=== PATIENT | male | born 1985 | race Caucasian/White ===

== ENCOUNTER → 2019-08-06 | Outpatient (CLI) | payer MEDICARE ==
[~2019-08-06] MED LIST: ALBUTEROL SULF 0.083% NEB SOLN 3 ML NEB ONE
== END ==
LOC: RESP 11:57
PROVIDERS: ATTEND Internal Medicine Critical Care Medicine
DX: R06.00 Dyspnea, unspecified (principal); J30.9 Allergic rhinitis, unspecified; G47.33 Obstructive sleep apnea (adult) (pediatric); H69.90 Unspecified Eustachian tube disorder, unspecified ear; Z68.41 Body mass index [BMI] 40.0-44.9, adult
CPT/HCPCS: 94060; 94640; 94727; 94729

== ENCOUNTER 2019-08-25 07:27 | Inpatient (IN) | payer MEDICARE, OTHER ==
[~2019-08-25] VITALS: Ht 180.3 cm; Wt 127.0 kg
[2019-08-25] MEDS ORDERED: SODIUM CHLORIDE 0.9% 1000ML 1,000 ML IV STA (07:28)
[2019-08-25] MEDS ORDERED: PIPER-TAZ 3.375 GM 50 ML IV ONE (07:30)
[2019-08-25] MEDS ORDERED: DIATRIZOATE MEGL/DIATRIZOA SOD 30 ML BTL PO ONE (07:41)
[2019-08-25 08:01] LABS: BASOPHILS % 0.3 % (0.0-1.0); EOSINOPHILS # (AUTO) 0.2 (0.0-0.4); EOSINOPHILS % 1.7 % (0.0-6.0); HEMATOCRIT 38.9 % (38.2-49.6); HEMOGLOBIN 12.8 g/dL (14.0-18.0); LYMPHOCYTES # (AUTO) 1.5 (1.0-3.2); LYMPHOCYTES % 16.7 % (18.0-39.1); MEAN CORPUSCULAR HEMOGLOBIN 29.2 pg (28-32); MEAN CORPUSCULAR HGB CONC 32.9 g/dL (31-35); MEAN CORPUSCULAR VOLUME 88.6 fL (81-99); MONOCYTES # (AUTO) 0.5 (0.2-0.8); MONOCYTES % 5.6 % (4.4-11.3); NEUTROPHILS # (AUTO) 6.6 (2.1-6.9); NEUTROPHILS % 75.4 % (38.7-80.0); PLATELET COUNT 358 x10e3/uL (140-360); RED BLOOD COUNT 4.39 x10e6/uL (4.3-5.7); RED CELL DISTRIBUTION WIDTH 12.7 % (11.7-14.4)
[2019-08-25 08:03] LABS: BILIRUBIN,URINE NEGATIVE (NEGATIVE); CLARITY,URINE CLEAR (CLEAR); COLOR,URINE YELLOW (YELLOW); KETONES,URINE NEGATIVE (NEGATIVE); LEUKOCYTE ESTERASE ,URINE NEGATIVE (NEGATIVE); NITRITE,URINE NEGATIVE (NEGATIVE); PROTEIN,URINE DIPSTICK NEGATIVE (NEGATIVE); URINE UROBILINOGEN 0.2 mg/dL (0.2 - 1)
[2019-08-25 08:25] LABS: ALANINE AMINOTRANSFERASE 15 IU/L (0-55); ALBUMIN 3.8 g/dL (3.5-5.0); ALBUMIN/GLOBULIN RATIO 1.1 (0.8-2.0); ALKALINE PHOSPHATASE 55 IU/L (40-150); ANION GAP 14.7 mmol/L (8-16); BACTERIA,URINE FEW /HPF; BLOOD UREA NITROGEN 5 mg/dL (7-26); BUN/CREATININE RATIO 7 (6-25); CALCIUM 9.4 mg/dL (8.4-10.2); CARBON DIOXIDE 23 mmol/L (22-29); CHLORIDE 103 mmol/L (98-107); CREATININE, SERUM 0.76 mg/dL (0.72-1.25); EPITHELIAL CELLS,URINE FEW /LPF; EST GLOMERULAR FILTRATION RATE > 60 ML/MIN (60-); GLUCOSE 103 mg/dL (74-118); POTASSIUM 3.7 mmol/L (3.5-5.1); RBC,URINE 0-5 /HPF (0-5); SODIUM 137 mmol/L (136-145)
--- NOTE | 2019-08-25 10:22 | Diagnostic Imaging Report ---
CT Abdomen And Pelvis with Intravenous Contrast INDICATION: ^look for appy, diverticulitis, pancreatitis, hernia, rup ^[id number] ^[id number] ^Y TECHNIQUE: Thin collimation axial images obtained from the diaphragm to the level of the pubic symphysis following the uneventful administration of 100 cc of low osmolar, nonionic intravenous contrast. Oral contrast was administered. Dose reduction techniques used: Automated exposure control, adjustment of the mAs and/or kVp according to patient size, standardized low-dose protocol, and/or iterative reconstruction technique. RADIATION DOSE: Total DLP: 826.8 mGy*cm Estimated effective dose: (DLP x 0.015 x size factor) mSv CTDIvol has been reviewed. It is below the limits set by the Radiation Protocol Committee (RPC). COMPARISON: None. ABDOMEN FINDINGS: Lung Bases: Clear. The visualized portions of the mediastinum are normal.. Liver: Normal attenuation. No evidence for mass. Gallbladder: Present and appears normal. No biliary ductal dilatation. Pancreas: Normal attenuation without mass or ductal dilatation. Spleen: Normal in size. No evidence of mass.. Adrenal Glands: No evidence for mass. Kidneys: Right: Normal enhancement. No soft tissue mass. No hydronephrosis. Left: Normal enhancement. No soft tissue mass. No hydronephrosis. Lymph Nodes: No lymphadenopathy. Aorta: Normal in diameter PELVIS FINDINGS: Bowel: Stomach: Normal. Small Bowel: Normal in caliber with normal wall thickness. Enteric contrast present throughout Large Bowel: Contains enteric contrast. Diffuse diverticulosis particularly in the descending colon and sigmoid colon there is mural thickening and diverticular inflammation of the distal sigmoid colon. There are multiple droplets of air in the adjacent peritoneum. No loculated fluid collection. Appendix: Contains enteric contrast and is normal. Bladder: Normal. Peritoneum/retroperitoneum: Small fluid collection in the cul-de-sac. No peripheral enhancement. Bones: No focal osseous lesions. Soft tissues: Fat-containing inguinal hernias, left larger than right. IMPRESSION: 1. Acute diverticulitis of the distal sigmoid colon surrounded by multiple droplets of free air consistent with microperforation. No loculated fluid collection to suggest abscess. 2. Small amount of pelvic ascites. 3. Normal appendix. No evidence of bowel obstruction. Signed by: Dr. Dina Head MD on 08/25/2019 10:18 AM
[2019-08-25] MEDS ORDERED: LEVOFLOXACIN 500MG/D5W 100ML IV SCH (10:45)
[2019-08-25] MEDS ORDERED: DIPHENHYDRAMINE HCL INJ 50 MG/ML VIAL IV PRN (10:45)
[2019-08-25] MEDS ORDERED: MORPHINE SULFATE 2 MG/ML SYR 1ML IV PRN (10:45)
[2019-08-25] MEDS: LACTATED RINGER'S 1,000 ML IV SCH (11:06)
--- OUTSIDE RECORDS SUMMARY | 2019-08-25 11:09 | XMS REPORT ---
Author Author [facility] Address Unknown Phone Unavailable Care Team Providers Care Securities Counselor Name Role Phone Abdiaziz DO Unavailable Unavailable Problems This patient has no known problems. Allergies, Adverse Reactions, Alerts This patient has no known allergies or adverse reactions. Medications This patient has no known medications. Results Test Description Test Time Test Comments Text Results Atomic Results Result Comments CT ABDOMEN/PELVIS W 2019-08-25 10:14:00 [place] [id number] [place] [id number] Patient Name: ASYA CAMACHO MR #: [id number] : 1985 Age/Sex: 34/M Req #: [id number] Adm Physician: Ordered by: LUBNA DO MD Report #: [id number] Location: ER Room/Bed: Procedure: [id number] CT/CT ABDOMEN/PELVIS W Exam Date: 08/25/19 Exam Time: 905 REPORT STATUS: Signed CT Abdomen And Pelvis with Intravenous Contrast INDICATION: look for appy, diverticulitis, pancreatitis, hernia, rup [id number] Y TECHNIQUE: Thin collimation axial images obtained from the diaphragm to the level of the pubic symphysis following the uneventful administration of 100 cc of low osmolar, nonionic intravenous contrast. Oral contrast was administered. Dose reduction techniques used: Automated exposure control, adjustment of the mAs and/or kVp according to patient size, standardized low-dose protocol, and/or iterative reconstruction technique. RADIATION DOSE: Total DLP: 826.8 mGy*cm Estimated effective dose: (DLP x 0.015 x size factor) mSv CTDIvol has been reviewed. It is below the limits set by the Radiation Protocol Committee (RPC). COMPARISON: None. ABDOMEN FINDINGS: Lung Bases: Clear. The visualized portions of the mediastinum are normal.. Liver: Normal attenuation. No evidence for mass. Gallbladder: Present and appears jessica l. No biliary ductal dilatation. Pancreas: Normal attenuation without mass or ductal dilatation. Spleen: Normal in size. No evidence of mass.. Adrenal Glands: No evidence for mass. Kidneys: Right: Normal enhancement. No soft tissue mass. No hydronephrosis. Left: Normal enhancement. No soft tissue mass. No hydronephrosis. Lymph Nodes: No lymphadenopathy. Aorta: Normal in diameter PELVIS FINDINGS: Bowel: Stomach: Normal. Small Bowel: Normal in caliber with normal wall thickness. Enteric contrast present throughout Large Bowel: Contains enteric contrast. Diffuse diverticulosis particularly in the descending colon and sigmoid colon there is mural thickening and diverticular inflammation of the distal sigmoid colon. There are multiple droplets of air in the adjacent peritoneum. No loculated fluid collection. Appendix: Contains enteric contrast and is normal. Bladder: Normal. Peritoneum/retroperitoneum: Small fluid collection in the cul-de-sac. No peripheral enhancement. Bones: No focal osseous lesions. Soft tissues: Fat-containing inguinal hernias, left larger than right. IMPRESSION: 1. Acute diverticulitis of the distal sigmoid colon surrounded by multiple droplets of free air consistent with microperforation. No loculated fluid collection to suggest abscess. 2. Small amount of pelvic ascites. 3. Normal appendix. No evidence of bowel obstruction. Signed by: Dr. Delmis Head MD on 08/25/2019 10:18 AM Dictated By: DELMIS HEAD MD [id number] Transcribed By: PITER on 08/25/19 1018 COPY TO: LUBNA DO MD
[2019-08-25 11:30] VITALS: BP 122/65
[2019-08-25] MEDS ORDERED: IOPAMIDOL 370 MG/ML 200 ML INFUS..BTL INJ ONE (11:38)
[2019-08-25] MEDS ORDERED: SODIUM CHLORIDE 0.9% 50ML 50 ML ONE (11:38)
--- NOTE | 2019-08-25 11:41 | NUR ---
Received patient from ER, a/ox3, c/o LLQ pain 05/04, being medicated at this time, admitted for diverticulitis, Levaquin running, IV fluids, call light within reach, c/o nausea, medicated with Zofran, will monitor.
[2019-08-25] MEDS: MORPHINE SULFATE INJ 4 MG/ML INJ 1ML IV PRN ×3 (11:42→20:53)
[2019-08-25] MEDS: ONDANSETRON HCL INJ 2MG/ML 2ML 2 MG/ML VIAL IV PRN (11:42)
[2019-08-25 11:55] VITALS: BP 122/65
[2019-08-25] MEDS: METRONIDAZOLE 500MG/NS 100ML IV SCH ×2 (12:00→17:39)
[2019-08-25] MEDS ORDERED: PRILOSEC10 M1 PO (12:09)
[2019-08-25] MEDS ORDERED: ESTRADIOL1 G2 IM (12:09)
--- NOTE | 2019-08-25 12:20 | NUR ---
Dr. Adamson notified of consult and he called back at this time
[2019-08-25] MEDS ORDERED: MORPHINE SULFATE INJ 4 MG/ML INJ 1ML IV PRN (13:00)
--- NOTE | 2019-08-25 13:02 | NUR ---
Dr. Agrawal notified of consult and rounded at this time to see patient.
[2019-08-25 15:34] VITALS: BP 118/63
--- NOTE | 2019-08-25 16:01 | History and Physical ---
CHIEF COMPLAINT: Abdominal pain. HISTORY OF PRESENT ILLNESS: A 34-year-old female with no past medical history, comes into the emergency room with complaints of abdominal pain ongoing for the last several days. The patient presented to an outside ER with abdominal pain, found to have sigmoid diverticulitis at that time and was discharged on oral antibiotics and pain control. He stated he was doing well up until the last one or two days that he complained of crampy, colicky abdominal pain and with no resolve. Denies any fever at home or any chest pain. The patient was taking his oral antibiotics at home, but showed very minimal relief. On presentation here, he was found to have microperforations on the CT abdomen and pelvis requiring admission. The patient is seen and evaluated at bedside on the medical floor. He is currently doing well with no other issues at this time. REVIEW OF SYSTEMS: Pertinent positives: Abdominal pain, nausea. Pertinent negatives: Denies any chest pain, palpitation, vomiting, dysuria, hematuria, frequency, urgency, lightheadedness, dizziness, headaches, shortness of breath, cough, congestion, fever, or any other complaints. The rest of the 14-point review of systems are reviewed with the patient and are negative. ALLERGIES: NO KNOWN DRUG ALLERGIES. HOME MEDICATIONS: He takes estradiol powder IM weekly. He takes omeprazole. PAST MEDICAL HISTORY: He is in the process of transgender and taking estradiol powder IM for estrogen supplements. PAST SURGICAL HISTORY: Reports none. FAMILY HISTORY: Hypertension and diabetes. SOCIAL HISTORY: No drugs. No alcohol. Does not smoke. 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 PHYSICAL EXAMINATION: VITAL SIGNS: Temperature is 99.4, pulse 97, respiratory rate is 18, blood pressure 120/65, and pulse ox 100% on room air. GENERAL: Not in acute distress. Alert and oriented x3. Cooperative on examination. HEENT: Head; normocephalic, atraumatic. Eyes; pupils are equal, round, and reactive to light bilaterally. Extraocular movements intact bilaterally. Throat; no evidence of erythema or exudates in the posterior pharynx. Has poor dentition. NECK: Supple. Good range of motion. PULMONARY: Clear to auscultation bilaterally. No wheezing, no rales, no rhonchi, no crackles appreciated. CARDIOVASCULAR: Positive S1 and S2. No murmurs, rubs, or gallops appreciated. ABDOMEN: Soft and nondistended. It was tender to palpation in the left lower quadrant. No rebound. No guarding. MUSCULOSKELETAL: Strength is 5/5 throughout. No evidence of any muscle deficits on examination. No weakness appreciated. NEUROLOGIC: Cranial nerves II through XII grossly intact. No evidence of any neurological deficits on exam. SKIN: Intact. Warm to touch. Good cap refill. PSYCHIATRIC: Normal affect and mood. EXTREMITIES: No edema. Good range of motion throughout. LABORATORY FINDINGS: Show white count 8.7, hemoglobin 12.8, hematocrit is 38, and platelets of 358. Chemistry; sodium 137, potassium 3.7, chloride 103, bicarb 23, anion gap of 14, BUN is 5, and creatinine is 0.76. LFTs within normal range. Albumin is 3.8. Urinalysis was found to be negative. MICROBIOLOGY: None. IMAGING STUDIES: CT abdomen and pelvis showed acute diverticulitis with distal sigmoid colon surrounded by multiple droplets of free air consistent with microperforations. No loculated fluid collection to suggest abscess. Small amount of pelvic ascites. Normal appendix. No evidence of bowel obstruction. IMPRESSION: 1. Acute diverticulitis with microperforations. 2. Abdominal pain secondary to #1. 3. Nausea. PLAN: At this time, n.p.o., IV fluids, pain control, IV antibiotics, General Surgery consultation. CT abdomen and pelvis results noted. We will resume same home medications. Nutrition, n.p.o., IV fluids. Put him on SCDs for DVT prophylaxis for now in the event the patient needs any kind of surgical intervention. Otherwise, we will continue to monitor him very closely. I discussed the plan of care with the patient and the nursing staff taking care of the patient, and they verbalized understanding and agreed to plan of care. MD OLGA Collazo/MAINOR /[id number]
[2019-08-25] MEDS: FAMOTIDINE 20 MG/2 ML VIAL IV SCH (16:08)
[2019-08-25] MEDS: PIPER-TAZ 3.375 GM 50 ML IV SCH ×2 (17:39→23:23)
--- NOTE | 2019-08-25 18:27 | NUR ---
Patient alert and responsive, no resp distress, persistent LLQ soreness and bloating, pains well controlled with meds, continues on Zosyn and metronidazole for gram negative coverage and broad spectrum, no fevers, no chills, remains NPO, will monitor.
--- NOTE | 2019-08-25 19:06 | Consultation ---
DATE OF CONSULTATION: REASON FOR CONSULTATION: Diverticulitis. HISTORY OF PRESENT ILLNESS: This patient, who is a 34-year-old male, who has history of diverticular disease comes in with abdominal pain. The patient previously had history of diverticulitis and had a CAT scan, and he was supposed to schedule for colonoscopy sometime in the future when he have severe pain for the last 3 days, getting progressively worse with nausea. He originally few days ago came to the emergency room, was given oral Cipro and Flagyl, but the pain continued to progress, so he came here. The patient was admitted and I am asked to see him. PAST MEDICAL HISTORY: Diverticular disease and obesity. The patient is transitioning gender. PAST SURGICAL HISTORY: None. SOCIAL HISTORY: There is no smoking, drug abuse, or alcohol abuse. FAMILY HISTORY: Otherwise noncontributory. REVIEW OF SYSTEMS: At the present time, nausea and abdominal pain. His standing make the pain better. Review of systems is otherwise negative. PHYSICAL EXAMINATION: GENERAL: He is currently alert and oriented. Does not seem to be in acute distress. VITAL SIGNS: Stable, currently afebrile. Temperature 97.7. HEENT: Normocephalic. Not icteric. NECK: Supple. CHEST: Clear bilateral. HEART: S1 and S2. ABDOMEN: Soft, diffuse discomfort. EXTREMITIES: No edema. SKIN: No rash. IMPRESSION: 1. Diverticulitis with microperforation along the descending colon and sigmoid colon. We will put the patient on Zosyn since he has failed Levaquin and Cipro as an outpatient. I would recommend Surgical evaluation. He may end up at one point with partial colectomy. I am concerned about the perforation he has. Recheck CBC. Recheck chem panel with need colonoscopy at one point. 2. Transgender. Recheck CBC. Recheck chem panel. We will follow with you. Can discontinue Flagyl. Continue with Zosyn. Thank you for asking me to see this patient. Discussed with Internal Medicine. Discussed with the medical team. Discussed with the patient. MD MARC Rodas/MAINOR /[id number]
[2019-08-25 19:07] VITALS: BP 111/57
--- NOTE | 2019-08-25 19:07 | NUR ---
PT IS RESTING IN BED. RESPIRATION IS EVEN AND UNLABORED, NO DISTRESS NOTED. BED IN THE LOWEST POSITION, LOCKED, AND CALL LIGHT WITHIN REACH. WILL CONTINUE TO MONITOR.
[2019-08-25 20:48] VITALS: BP 111/57
[2019-08-25] MEDS ORDERED: ZOLPIDEM TARTRATE 5 MG TAB PO PRN (21:00)
[2019-08-26] VITALS (8 sets, daily range): BP systolic 106–135; BP diastolic 60–73
[2019-08-26] MEDS: LACTATED RINGER'S 1,000 ML IV SCH
[2019-08-26] MEDS: MORPHINE SULFATE INJ 4 MG/ML INJ 1ML IV PRN ×2 (01:19→08:00)
--- NOTE | 2019-08-26 01:48 | Consultation ---
DATE OF CONSULTATION: 08/25/2019 HISTORY OF PRESENT ILLNESS: The patient is a 34-year-old male, transitioned to female, who presents with complaints of abdominal pain in the lower abdomen. He says he has had pain for several days. Pain was very severe. He went to [facility], where his evaluation revealed diverticulitis. He is treated with p.o. antibiotics, initially improved, but then returned to the hospital after the pain became more severe this morning. He has had some difficulty with his bowels with some cramping. No nausea or vomiting. No fever. CT of the abdomen done in the emergency room here reveals contained perforation of the colon with diverticular disease. PAST MEDICAL HISTORY: Significant for his transitioning from male to female. MEDICATIONS: His only medications are estrogen injections and Prilosec. ALLERGIES: HE HAS NO KNOWN ALLERGIES. PAST SURGICAL HISTORY: He has had no previous abdominal surgery. FAMILY HISTORY: Noncontributory. SOCIAL HISTORY: The patient does not smoke cigarettes or drink alcohol. REVIEW OF SYSTEMS: As stated above, otherwise was negative. PHYSICAL EXAMINATION: GENERAL: The patient is awake and alert. VITAL SIGNS: Significant for low-grade fever, temperature 99.9, heart rate is around 100. HEENT: Sclerae are nonicteric. NECK: Supple. No masses. LUNGS: Equal breath sounds are clear bilaterally. CARDIAC: Regular rate and rhythm with no murmur. ABDOMEN: Tender in the lower abdomen, suprapubically in the left lower quadrant. There are questionable signs of peritonitis. There is no mass. There is no distention. EXTREMITIES: Have no edema. Pulses are palpable. NEUROLOGIC: Intact. LABORATORY TESTS: White blood cell count is normal at 8.7, hemoglobin 12.8, hematocrit 38.9. Chemistries are essentially normal. ASSESSMENT: A 34-year-old male with acute contained perforation with sigmoid diverticulitis. At this point, recommend keeping the patient on IV antibiotics, n.p.o. Hopefully, he will resolve without requiring surgical intervention. This was explained to the patient. Thank you for asking me to see Mr. Garcia. MD FRANCO Oliva/MAINOR /[id number]
[2019-08-26] MEDS: METRONIDAZOLE 500MG/NS 100ML IV SCH ×5 (05:14→23:31)
[2019-08-26 06:31] LABS: BASOPHILS % 0.3 % (0.0-1.0); EOSINOPHILS # (AUTO) 0.1 (0.0-0.4); EOSINOPHILS % 0.7 % (0.0-6.0); HEMATOCRIT 36.5 % (38.2-49.6); HEMOGLOBIN 12.1 g/dL (14.0-18.0); LYMPHOCYTES # (AUTO) 1.4 (1.0-3.2); LYMPHOCYTES % 14.4 % (18.0-39.1); MEAN CORPUSCULAR HEMOGLOBIN 29.3 pg (28-32); MEAN CORPUSCULAR HGB CONC 33.2 g/dL (31-35); MEAN CORPUSCULAR VOLUME 88.4 fL (81-99); MONOCYTES # (AUTO) 0.6 (0.2-0.8); MONOCYTES % 6.5 % (4.4-11.3); NEUTROPHILS # (AUTO) 7.4 (2.1-6.9); NEUTROPHILS % 77.8 % (38.7-80.0); PLATELET COUNT 333 x10e3/uL (140-360); RED BLOOD COUNT 4.13 x10e6/uL (4.3-5.7)
[2019-08-26] MEDS: PIPER-TAZ 3.375 GM 50 ML IV SCH ×4 (06:33→22:58)
[2019-08-26 06:48] LABS: ANION GAP 12.7 mmol/L (8-16); BLOOD UREA NITROGEN < 5 mg/dL (7-26); CALCIUM 8.9 mg/dL (8.4-10.2); CARBON DIOXIDE 25 mmol/L (22-29); CHLORIDE 103 mmol/L (98-107); CREATININE, SERUM 0.78 mg/dL (0.72-1.25); EST GLOMERULAR FILTRATION RATE > 60 ML/MIN (60-); GLUCOSE 98 mg/dL (74-118); POTASSIUM 3.7 mmol/L (3.5-5.1); SODIUM 137 mmol/L (136-145)
[2019-08-26 06:50] LABS: BUN/CREATININE RATIO 6 (6-25)
--- NOTE | 2019-08-26 08:00 | NUR ---
PT UP IN BED NO DISTRESS NOTED PAIN LEVEL 4 MEDICATED.
[2019-08-26] MEDS: FAMOTIDINE 20 MG/2 ML VIAL IV SCH ×2 (09:00→17:00)
--- NOTE | 2019-08-26 11:05 | NUR ---
DR DEGROOT HERE ORDERS WRITTEN,NO DISTRESS NTOED
--- NOTE | 2019-08-26 14:28 | Progress Note ---
DATE: 08/26/2019 SUBJECTIVE: The patient reports feeling much better now. His abdominal pain improved tremendously. He still has some cramping, but much improved compared to admission. PHYSICAL EXAMINATION: VITAL SIGNS: Temperature is 99, pulse 84, respiratory rate is 18, blood pressure 118/66, and pulse ox 98% on room air. GENERAL: Not in acute distress. Alert and oriented x3. Cooperative on examination. HEENT: Head; normocephalic, atraumatic. Eyes; pupils are equal, round, and reactive to light bilaterally. Extraocular movements intact bilaterally. Throat; no evidence of erythema or exudates in the posterior pharynx. Has poor dentition. NECK: Supple. Good range of motion. PULMONARY: Clear to auscultation bilaterally. No wheezing, no rales, no rhonchi, no crackles appreciated. CARDIOVASCULAR: Positive S1 and S2. No murmurs, rubs, or gallops appreciated. ABDOMEN: Mild tender to palpation, but much improved in the left lower quadrant. No rebound. No guarding. MUSCULOSKELETAL: Strength is 5/5 throughout. No evidence of any muscle deficits on examination. No weakness appreciated. NEUROLOGIC: Cranial nerve II through XII grossly intact. No evidence of any neurological deficits on exam. SKIN: Intact. Warm to touch. Good cap refill. PSYCHIATRIC: Normal affect and mood. EXTREMITIES: No edema. Good range of motion throughout. LABORATORY FINDINGS: Show white count 9.5, hemoglobin 12.9, hematocrit 36.5, platelets of 333. Chemistry; sodium 137, potassium 3.7, chloride 103, bicarb 25, anion gap 12.78, glucose 98, calcium is 8.9. LFTs within normal range. Albumin is 3.8. MICROBIOLOGY: None. IMAGING STUDIES: Reviewed yesterday. CT abdomen and pelvis reviewed. IMPRESSION: 1. Acute diverticulitis with microperforation. 2. Abdominal pain secondary to acute diverticulitis, improved. 3. Nausea, improved. PLAN: At this time, he is now started on a clear liquid diet and advanced by General Surgery. Discontinue IV fluids as he is tolerating now clear liquid diet well. Pain control, IV antibiotics. General surgeon and ID are following. Put him on Lovenox for DVT prophylaxis. It seems like there is no need for any surgical intervention at this time. We will continue to monitor very closely on a daily basis. Once his diet has been advanced to as tolerated and General Surgery has cleared, the patient will be discharged on oral antibiotics. Otherwise, we will continue with same plan of care and monitor very closely. Discussed plan of care with the patient and nursing staff. MD OLGA Collazo/MODCarter /[id number]
[2019-08-26] MEDS: ENOXAPARIN SOD INJ 40 MG/0.4 ML SYR SC SCH (17:00)
--- NOTE | 2019-08-26 18:05 | NUR ---
PT UP ON SIDE OF BED ,DENIES PAIN,TOLERATING LIQUIDS WELL
--- NOTE | 2019-08-26 19:05 | NUR ---
Received report from day nurse. Patient is resting comfortably in bed. Bed is in lowest position and call montemayor is within reach. Will continue to monitor patient.
[2019-08-27] VITALS: BP 122/67
[2019-08-27] MEDS: ONDANSETRON HCL INJ 2MG/ML 2ML 2 MG/ML VIAL IV PRN (00:41)
[2019-08-27] MEDS: MORPHINE SULFATE INJ 4 MG/ML INJ 1ML IV PRN (00:41)
[2019-08-27 04:00] VITALS: BP 114/63
[2019-08-27] MEDS: PIPER-TAZ 3.375 GM 50 ML IV SCH ×3 (05:17→18:00)
[2019-08-27] MEDS: METRONIDAZOLE 500MG/NS 100ML IV SCH (06:45)
--- NOTE | 2019-08-27 06:58 | NUR ---
report given to day nurse. patient is resting comfortably in bed. bed is in lowest position and call light is within reach.
--- NOTE | 2019-08-27 07:30 | NUR ---
PT UP IN RECLINER,DENIES PAIN,
[2019-08-27 08:00] VITALS: BP 104/58
[2019-08-27] MEDS: FAMOTIDINE 20 MG/2 ML VIAL IV SCH ×2 (09:00→17:00)
--- NOTE | 2019-08-27 09:30 | NUR ---
TOLERATED FULL LIQUID DIET WELL.DR DEGROOT HERE NO NEW ORDERS
--- NOTE | 2019-08-27 11:14 | Progress Note ---
DATE: 08/27/2019 Medicine Progress Note SUBJECTIVE: The patient's abdominal pain is improved. Now he is on a full liquid diet, advanced by General Surgery. His pain is better controlled. PHYSICAL EXAMINATION: VITAL SIGNS: Temperature 98.7, pulse 89, respiratory rate is 22, blood pressure 104/58, and pulse ox 98% on room air. GENERAL: Not in acute distress. Alert and oriented x3. Cooperative on examination. HEENT: Head; normocephalic, atraumatic. Eyes; pupils are equal, round, and reactive to light bilaterally. Extraocular movements intact bilaterally. Throat; no evidence of erythema or exudates in the posterior pharynx. Has poor dentition. NECK: Supple. Good range of motion. PULMONARY: Clear to auscultation bilaterally. No wheezing, no rales, no rhonchi, no crackles appreciated. CARDIOVASCULAR: Positive S1 and S2. No murmurs, rubs, or gallops appreciated. ABDOMEN: Soft, nondistended, and nontender to palpation. Bowel sounds present. MUSCULOSKELETAL: Strength is 5/5 throughout. No evidence of any muscle deficits on examination. No weakness appreciated. NEUROLOGIC: Cranial nerves II through XII grossly intact. No evidence of any neurological deficits on exam. SKIN: Intact. Warm to touch. Good cap refill. PSYCHIATRIC: Normal affect and mood. EXTREMITIES: No edema. Good range of motion throughout. LABORATORY FINDINGS: Show white count is 9.5, hemoglobin 12, hematocrit is 36.5, and platelets of 333. Chemistry; sodium 137, potassium 3.7, chloride 103, bicarb 25, anion gap of 12, BUN is 5, creatinine is 0.78, glucose 98, and calcium is 8.9. LFTs within normal range. IMPRESSION: 1. Acute diverticulitis with microperforation. 2. Abdominal pain secondary to acute diverticulitis, improved. 3. Nausea, improved. PLAN: At this time, his diet has been advanced to full liquids per General Surgery. We will continue with oral hydration. He is on IV antibiotics, being managed by ID. General Surgery and ID are following very closely. He is on Lovenox for DVT prophylaxis. Encourage ambulation. Continue to monitor very closely. If he improves, possibly discharge tomorrow on oral antibiotics. Once he has been cleared by General Surgery, ID will discharge him home. MD OLGA Collazo/MAINOR /[id number]
--- NOTE | 2019-08-27 12:45 | NUR ---
PT UP AMBULATING IN [place] DENIES PAIN
[2019-08-27 16:00] VITALS: BP 127/73
[2019-08-27] MEDS: ENOXAPARIN SOD INJ 40 MG/0.4 ML SYR SC SCH (17:00)
--- NOTE | 2019-08-27 18:31 | NUR ---
PT UP IN BED DENIES PAIN.TOLERATING DIET WELL.
--- NOTE | 2019-08-27 19:12 | NUR ---
Received change of shift report from AM nurse. Walking rounds completed.
[2019-08-27 20:00] VITALS: BP 121/69
--- NOTE | 2019-08-27 21:00 | NUR ---
Patient up ambulating in [place] with no difficulty noted.
[2019-08-27] MEDS: ACETAMINOPHEN 325 MG TAB PO PRN (21:54)
[2019-08-28] VITALS (7 sets, daily range): BP systolic 116–131; BP diastolic 54–77
--- NOTE | 2019-08-28 04:45 | NUR ---
Patient resting quitly at this time.
[2019-08-28] MEDS: PIPER-TAZ 3.375 GM 50 ML IV SCH ×4 (06:00→17:58)
[2019-08-28] MEDS: ACETAMINOPHEN 325 MG TAB PO PRN (06:30)
[2019-08-28 06:42] LABS: BASOPHILS # (AUTO) 0.1 (0.0-0.1); BASOPHILS % 0.5 % (0.0-1.0); EOSINOPHILS # (AUTO) 0.2 (0.0-0.4); EOSINOPHILS % 1.6 % (0.0-6.0); HEMOGLOBIN 12.5 g/dL (14.0-18.0); LYMPHOCYTES # (AUTO) 1.3 (1.0-3.2); LYMPHOCYTES % 13.7 % (18.0-39.1); MEAN CORPUSCULAR HEMOGLOBIN 29.3 pg (28-32); MEAN CORPUSCULAR HGB CONC 32.9 g/dL (31-35); MEAN CORPUSCULAR VOLUME 89.2 fL (81-99); MONOCYTES # (AUTO) 0.7 (0.2-0.8); MONOCYTES % 7.5 % (4.4-11.3); NEUTROPHILS # (AUTO) 7.3 (2.1-6.9); NEUTROPHILS % 76.2 % (38.7-80.0); PLATELET COUNT 385 x10e3/uL (140-360); RED BLOOD COUNT 4.26 x10e6/uL (4.3-5.7); RED CELL DISTRIBUTION WIDTH 13.1 % (11.7-14.4)
[2019-08-28 06:54] LABS: ANION GAP 13.7 mmol/L (8-16); BLOOD UREA NITROGEN < 5 mg/dL (7-26); CALCIUM 9.4 mg/dL (8.4-10.2); CARBON DIOXIDE 26 mmol/L (22-29); CHLORIDE 103 mmol/L (98-107); EST GLOMERULAR FILTRATION RATE > 60 ML/MIN (60-); GLUCOSE 97 mg/dL (74-118); POTASSIUM 3.7 mmol/L (3.5-5.1); SODIUM 139 mmol/L (136-145)
[2019-08-28 06:56] LABS: BUN/CREATININE RATIO 6 (6-25)
--- NOTE | 2019-08-28 07:27 | NUR ---
PATIENT AMBULATED TO RESTROOM, SITTING AT BED SIDE WATCHING TV. CALL LIGHT AT REACH.
[2019-08-28] MEDS: FAMOTIDINE 20 MG/2 ML VIAL IV SCH ×2 (09:38→17:41)
--- NOTE | 2019-08-28 12:07 | NUR ---
PATIENT OUT OF BED TO CHAIR EATING LUNCH, NO COMPLAIN VOICED. CALL LIGHT AT REACH.
--- NOTE | 2019-08-28 15:04 | NUR ---
PATIENT AMBULATING IN HALLWAY BY SELF, NO COMPLAIN VOICED. WILL CONTINUE TO MONITOR.
--- NOTE | 2019-08-28 16:04 | Progress Note ---
DATE: 08/28/2019 Medicine Progress Note SUBJECTIVE: The patient is currently doing well today with no complaints. Diet has been advanced to regular. If he tolerates well, we will discharge home. I spoke the case with General Surgery. PHYSICAL EXAMINATION: VITAL SIGNS: Temperature is 98.7, pulse 90, respiratory rate is 20, blood pressure 117/74, pulse ox 100% on room air. GENERAL: Not in acute distress. Alert and oriented x3. Cooperative on examination. HEENT: Head; normocephalic, atraumatic. Eyes; pupils are equal, round, and reactive to light bilaterally. Extraocular movements intact bilaterally. Throat; no evidence of erythema or exudates in the posterior pharynx. Has poor dentition. NECK: Supple. Good range of motion. PULMONARY: Clear to auscultation bilaterally. No wheezing, rales, or rhonchi, no crackles appreciated. CARDIOVASCULAR: Positive S1 and S2. No murmurs, rubs, or gallops appreciated. ABDOMEN: Soft, nondistended, and nontender to palpation. Bowel sounds present. MUSCULOSKELETAL: Strength is 5/5 throughout. No evidence of any muscle deficits on examination. No weakness appreciated. NEUROLOGIC: Cranial nerve II through XII grossly intact. No evidence of any neurological deficits on exam. SKIN: Intact. Warm to touch. Good cap refill. PSYCHIATRIC: Normal affect and mood. EXTREMITIES: No edema. Good range of motion throughout. LABORATORY DATA: Show white count 9.5, hemoglobin 12, hematocrit 38, platelets of 385. Chemistries reviewed and stable. MICROBIOLOGY: None. IMAGING STUDIES: Nothing new. IMPRESSION: 1. Acute diverticulitis with microperforation. 2. Abdominal pain secondary to acute diverticulitis, which has improved. 3. Nausea, improved. 4. Dehydration, improved. PLAN: At this time, I spoke with General Surgery. Diet will be advanced to regular. Continue to monitor him very closely. Continue with oral hydration. IV antibiotics and he will be discharged on oral antibiotics being managed by ID. Continue with Lovenox for DVT prophylaxis. Encourage ambulation. If the patient tolerates his diet well, he can be discharged home if cleared by consultants tomorrow. MD OLGA Collazo/MAINOR /[id number]
[2019-08-28] MEDS: ENOXAPARIN SOD INJ 40 MG/0.4 ML SYR SC SCH (17:00)
--- NOTE | 2019-08-28 18:51 | Progress Note ---
DATE: SUBJECTIVE: Mr. Garcia is doing better. The abdominal pain is better. REVIEW OF SYSTEMS: HEENT: Negative. PULMONARY: Negative. CARDIAC: Negative. PHYSICAL EXAMINATION: GENERAL: He is currently alert, oriented, does not seem in acute distress. VITAL SIGNS: Stable, afebrile, temperature 98.7, heart rate 89, and respirations 20. HEENT: He is not icteric. NECK: Supple. CHEST: Clear. HEART: S1 and S2. No S3, S4, or murmurs. ABDOMEN: Soft. Bowel sounds present with tenderness. EXTREMITIES: No edema. SKIN: No rash. IMPRESSION AND PLAN: Diverticulitis with microperforation, clinically improving. He continued to improve. Can switch to oral ciprofloxacin and Flagyl to finish 14 days of antibiotic. Follow up with colonoscopy as an outpatient. GI workup as an outpatient. Discussed with the patient. Thank you for asking me to see this patient. MD MARC Rodas/MAINOR /[id number]
--- NOTE | 2019-08-28 19:10 | NUR ---
RECEIVED PT IN BED AOX3 .DENIES PAIN .NO ACUTE DISTRESS NOTED CALL LIGHT WITH IN REACH .CONTINUE TO MONITOR
[2019-08-28] MEDS ORDERED: PHENYLEPH/SHARK OIL/MO/PETROL 30 GM OINT RC PRN (20:30)
[2019-08-29] MEDS: ACETAMINOPHEN 325 MG TAB PO PRN
[2019-08-29 00:21] VITALS: BP 118/58
[2019-08-29] MEDS: PIPER-TAZ 3.375 GM 50 ML IV SCH ×3 (00:21→12:13)
[2019-08-29 04:40] VITALS: BP 101/59
[2019-08-29] MEDS ORDERED: SODIUM CHLORIDE 0.9% 250ML 250 ML ONE (05:27)
--- NOTE | 2019-08-29 06:04 | NUR ---
PT C/O HEMORID PAIN .NOTIFIED DR DEGROOT AND GOT THE ORDER TO APPLY PREPARATION H.APPLIED THE OINTMENT AND PT SAID THAT HE FEELS BETTER .CALL LIGHT WITH IN REACH .CONTINUE TO MONITOR
[2019-08-29 06:16] LABS: BASOPHILS # (AUTO) 0.1 (0.0-0.1); BASOPHILS % 0.8 % (0.0-1.0); EOSINOPHILS # (AUTO) 0.2 (0.0-0.4); EOSINOPHILS % 2.8 % (0.0-6.0); HEMATOCRIT 35.8 % (38.2-49.6); HEMOGLOBIN 11.8 g/dL (14.0-18.0); LYMPHOCYTES # (AUTO) 1.9 (1.0-3.2); LYMPHOCYTES % 23.6 % (18.0-39.1); MEAN CORPUSCULAR HEMOGLOBIN 29.4 pg (28-32); MEAN CORPUSCULAR VOLUME 89.3 fL (81-99); MONOCYTES # (AUTO) 0.7 (0.2-0.8); MONOCYTES % 8.3 % (4.4-11.3); NEUTROPHILS # (AUTO) 5.1 (2.1-6.9); NEUTROPHILS % 63.9 % (38.7-80.0); PLATELET COUNT 362 x10e3/uL (140-360); RED BLOOD COUNT 4.01 x10e6/uL (4.3-5.7); RED CELL DISTRIBUTION WIDTH 12.8 % (11.7-14.4)
[2019-08-29 06:40] LABS: ANION GAP 13.6 mmol/L (8-16); BLOOD UREA NITROGEN 5 mg/dL (7-26); BUN/CREATININE RATIO 6 (6-25); CARBON DIOXIDE 26 mmol/L (22-29); CHLORIDE 103 mmol/L (98-107); CREATININE, SERUM 0.82 mg/dL (0.72-1.25); EST GLOMERULAR FILTRATION RATE > 60 ML/MIN (60-); GLUCOSE 91 mg/dL (74-118); POTASSIUM 3.6 mmol/L (3.5-5.1); SODIUM 139 mmol/L (136-145)
--- NOTE | 2019-08-29 06:53 | NUR ---
BEDSIDE REPORT GIVEN TOT HE ONCOMING NURSE
[2019-08-29 07:25] VITALS: BP 120/65
--- NOTE | 2019-08-29 07:25 | NUR ---
PATIENT AMBULATING IN HALLWAY, NO COMPLAIN VOICED. WILL MONITOR.
[2019-08-29 07:52] VITALS: BP 120/65
[2019-08-29] MEDS: FAMOTIDINE 20 MG/2 ML VIAL IV SCH (09:03)
[2019-08-29 11:17] VITALS: BP 104/55
--- NOTE | 2019-08-29 11:25 | NUR ---
MD IN TO SEE PATIENT, NEW ORDER RECEIVED.
[2019-08-29] MEDS ORDERED: CIPRO500 MG PO (14:48)
[2019-08-29] MEDS ORDERED: FLAGYL250 MG PO (14:49)
--- NOTE | 2019-08-29 15:46 | NUR ---
PATIENT DISCHARGED HOME. DISCHARGE INSTRUCTIONS, PRESCRIPTIONS, AND FOLLOW UP GIVEN TO PATIENT, HE VERBALIZED UNDERSTANDING. IV TO LEFT FOREARM REMOVED WITH TIP INTACT. ALL PERSONAL ITEMS TAKEN WITH PATIENT. REFUSED WHEEL CHAIR, BUT WAS ACCOMPANIED BY HOSPITAL STAFF TO FRONT LOBBY IN STABLE CONDITION.
--- NOTE | 2019-08-30 10:51 | Discharge Summary ---
FINAL DISCHARGE DIAGNOSES: 1. Acute diverticulitis with microperforations, now resolved. 2. Abdominal pain secondary to acute diverticulitis, resolved. 3. Nausea and vomiting, resolved. 4. Dehydration, improved. CONSULTANTS: General Surgery and Infectious Disease. PHYSICAL EXAMINATION: VITAL SIGNS: Temperature was 99, pulse 73, respiratory rate is 18, blood pressure is 120/65, pulse ox 96% on room air. LABORATORY FINDINGS: Show white count 7.9, hemoglobin 11.8, hematocrit 35.8, platelets of 362. Chemistry; sodium 139, potassium 3.6, chloride 103, bicarb 26, anion gap of 13, BUN is 5, creatinine is 0.82, glucose is 91, calcium is 9. LFTs within normal range. Urinalysis was negative. MICROBIOLOGY: None. IMAGING STUDIES: CT abdomen and pelvis showed acute diverticulitis of the distal sigmoid colon surrounded by multiple droplets of free air consistent with microperforation. No loculated fluid collection to suggest abscess. Small amount of pelvic ascites. Normal appendix. No evidence of bowel obstruction. HOSPITAL COURSE: This is a 34-year-old male, currently transgender, who has a history of diverticulitis, came in with complaints of abdominal pain ongoing for the last several days prior to arrival to the hospital. He was recently seen at the freestanding emergency room, was given some oral antibiotics and was discharged. He now presented back with worsening abdominal pain. While here, CT imaging abdomen and pelvis confirmed acute diverticulitis of the distal sigmoid colon with multiple droplets of air consistent with small microperforations. General Surgery, Dr. Adamson was consulted. The patient's white count was normal. He was afebrile. He was maintained on broad-spectrum IV antibiotics and ID was consulted. The patient did not need any surgical intervention according to General Surgery. The patient's symptoms improved throughout the hospital course. He was started on a clear liquid diet and transitioned to regular food prior to being discharged. The patient was tolerating regular diet well with no complaints. His pain was well resolved. And he was afebrile, normotensive and his white count was normal prior to being discharged home. He was cleared for discharge by General Surgery and ID for discharge home. He was advised to follow up with General Surgery in 1 week time. On the day of discharge, vital signs were stable, labs reviewed and stable. The patient was seen, evaluated, examined thoroughly on the day of discharge. No other complaints. The patient verbalized understanding and agrees to plan of care to follow up accordingly as an outpatient with the primary care physician in 1 week and General Surgery and ID in one week time. It was very important to follow up with General Surgery as I advised him very clearly and I also advised him to follow with a GI specialist as an outpatient as he will likely need a colonoscopy at a later date. He verbalized understanding and agrees with plan of care. MEDICATIONS: See med reconciliation form including Analpram HC for hemorrhoid pain. Cipro and Flagyl were written by Infectious Disease for 2 total weeks. DISPOSITION: To home. CONDITION: Stable. DIET: Heart healthy. In the event of any worsening symptoms, the patient was advised to come back to the ED for further evaluation. Discharge summary took greater than 35 minutes. MD OLGA Collazo/MAINOR /[id number]
== END 2019-08-29 15:45 | disposition home or self-care (01) | DRG 392 ==
LOC: ER 07:27 → ERHOLD 10:41 → MED/SURG3 11:25
PROVIDERS: ADMIT Internal Medicine; ATTEND Internal Medicine
DX: K57.20 Diverticulitis of large intestine with perforation and abscess without bleeding (principal); Z68.39 Body mass index [BMI] 39.0-39.9, adult; E86.0 Dehydration; E66.9 Obesity, unspecified; D64.9 Anemia, unspecified
CPT/HCPCS: 36415; 74177; 80048; 80053; 81001; 85025; 99284; J1650; J1956; J2270; J2405; J2543; J7030; J7050; J7121; Q9967

== ENCOUNTER 2020-03-06 17:35 | Emergency (ER) | payer OTHER ==
[~2020-03-06] VITALS: Ht 180.3 cm; Wt 120.7 kg
[~2020-03-06 17:35] MED LIST changes: -ALBUTEROL SULF 0.083% NEB SOLN 3 ML NEB ONE; +CIPRO500 MG PO; +ESTRADIOL1 G2 IM; +FLAGYL250 MG PO; +PRILOSEC10 M1 PO
--- OUTSIDE RECORDS SUMMARY | 2020-03-06 18:18 | XMS REPORT | Continuity of Care Document ---
Author Author [facility] t Organization [facility] Address [address] [place] [address] Phone Unavailable Care Team Providers Care Business Development Analyst Name Role Phone NONSTAFF PCP Unavailable Abdiaziz DO Attphys Unavailable Payers Payer Name Policy Type Policy Number Effective Date Expiration Date [employer] [id number] 2018 00:00:00 [facility] Problems Condition Name Condition Details Condition Category Status Onset Date Resolution Date Last Treatment Date Treating Clinician Comments Source Diverticulitis of large intestine Diverticulitis large intestine Pr oblem Active [facility] Perforation of intestine Perforated bowel Problem Active [facility] Allergies, Adverse Reactions, Alerts This patient has no known allergies or adverse reactions. Medications Ordered Medication Name Filled Medication Name Start Date Stop Da te Current Medication? Ordering Clinician Indication Dosage Frequency Signature (SIG) Comments Components Source Ciprofloxacin Hcl (Cipro) 500 Mg Tablet Ciprofloxacin Hcl (C ipro) 500 Mg Tablet Yes 500 Every 12 Hours [facility] Estradiol Hemihydrt,Micronized (Estradiol) 1 Gm Powder Estradiol Hemihydrt,Micronized (Estradiol) 1 Gm Powder Yes 20 Weekly [facility] Metronidazole (Flagyl) 250 Mg Tablet Metronidazole (Flagyl) 250 Mg Tablet Yes 500 Every [address] [facility] [place] [place] Omeprazole Magnesium (Prilosec) 10 Mg Suspdr.pkt Omepr azole Magnesium (Prilosec) 10 Mg Suspdr.pkt Yes 40 Daily [facility] Procedures Procedure Date / Time Performed Performing Clinician Sour e Computed tomography of abdomen and pelvis with contrast 2018 00:00:00 LUBNA DO [facility] Encounters Start Date/Time End Date/Time Encounter Type Admission Type Att[facility] Care Department Encounter ID Source 2019-08-25 10:41:00 2019-08-29 15:45:00 Discharged Inpatient 1 LUBNA DO [facility] [id number] [facility] 2019-08-06 11:57:00 2019-08-06 11:57:00 Registered Clinic [facility] [id number] [facility] Results Test Description Test Time Test Comments Results Result Comments Source Sodium Level 2019-08-29 06:45:00 Test Item Sodium Level (test code = 2951-2) 139 136-145 [facility]Potassium Fhofp7808-05-40 06:45:00* Test Item Value Reference Range Interpretation Comments Potassium Level (test code = 2823-3) 3.6 3.5-5.1 [facility] CenterChloride [id number] 06:45:00* Test Item Value Reference Range Interpretation Comments Chloride Level (test code = 2075-0) 103 98-107 [facility] CenterCarbon Dioxide Kkxpf7157-65-67 06:45:00* Test Item Value Reference Range Interpretation Comments Carbon Dioxide Level (test code = 2028-9) 26 22-29 [facility] CenterAnion [id number] 06:45:00* Test Item Value Reference Range Interpretation Comments Anion Gap (test code = 58615-3) 13.6 8-16 [facility] CenterBlood Urea Fxjmepre8037-89-55 06:45:00* Test Item Value Reference Range Interpretation Comments Blood Urea Nitrogen (test code = 3094-0) 5 7-26 L [facility] CenterCreatinine2019-12-05 06:45:00* Test Item Value Reference Range Interpretation Comments Creatinine (test code = 2160-0) 0.82 0.72-1.25 [facility] CenterBUN/Creatinine Jbjgl6022-55-50 06:45:00* Test Item Value Reference Range Interpretation Comments BUN/Creatinine Ratio (test code = 3097-3) 6 6-25 [facility] CenterEstimat Glomerular Filtration Rate 2019-08-29 06:45:00* Test Item Value Reference Range Interpretation Comments Estimat Glomerular Filtration Rate (test code = 267083143) > 60 >60 Ranges were taken from the National Kidney Disease Education Program and the [facility] literature.Reference ranges:60 or greater: Uqudkt89-51 ( for 3 consecutive months): Chronic kidney disease 15 or less: Kidney failureParis Regional Medical CenterGlucose Lkuht3202-12-25 06:45:00* Test Item Value Reference Range Interpretation Comments Glucose Level (test code = GGA1420) 91 74-118 [facility] CenterCalcium Rzigy3932-19-41 06:45:00* Test Item Value Reference Range Interpretation Comments Calcium Level (test code = 45104-6) 9.0 8.4-10.2 [facility] CenterWhite Blood Pkgxr5609-54-44 06:24:00* Test Item Value Reference Range Interpretation Comments White Blood Count (test code = 6690-2) 7.92 4.8-10.8 [facility] CenterRed Blood Zayng7446-87-62 06:24:00* Test Item Value Reference Range Interpretation Comments Red Blood Count (test code = 789-8) 4.01 4.3-5.7 L [facility] CenterHemoglobin2019-12-05 06:24:00* Test Item Value Reference Range Interpretation Comments Hemoglobin (test code = 74257-2) 11.8 14.0-18.0 L [facility] CenterHematocrit2019-12-05 06:24:00* Test Item Value Reference Range Interpretation Comments Hematocrit (test code = 4544-3) 35.8 38.2-49.6 L [facility] CenterMean Corpuscular Stskme4086-52-98 06:24:00* Test Item Value Reference Range Interpretation Comments Mean Corpuscular Volume (test code = 787-2) 89.3 81-99 [facility] CenterMean Corpuscular Efdmanqjgs5500-62-64 06:24:00* Test Item Value Reference Range Interpretation Comments Mean Corpuscular Hemoglobin (test code = 785-6) 29.4 28-32 [facility] CenterMean Corpuscular Hemoglobin Concent 2019-08-29 06:24:00* Test Item Value Reference Range Interpretation Comments Mean Corpuscular Hemoglobin Concent (test code = 786-4) 33.0 31-35 [facility] CenterRed Cell Distribution Dfpak3535-22-63 06:24:00* Test Item Value Reference Range Interpretation Comments Red Cell Distribution Width (test code = 96079-4) 12.8 11.7 -14.4 [facility] CenterPlatelet Qessk2709-37-41 06:24:00* Test Item Value Reference Range Interpretation Comments Platelet Count (test code = 777-3) 362 140-360 H [facility] CenterNeutrophils (%) (Auto)2019-08-29 06:24:00 * Test Item Value Reference Range Interpretation Comments Neutrophils (%) (Auto) (test code = 42406-4) 63.9 38.7-80.0 [facility] CenterLymphocytes (%) (Auto)2019-08-29 06:24:00 * Test Item Value Reference Range Interpretation Comments Lymphocytes (%) (Auto) (test code = 736-9) 23.6 18.0-39.1 [facility] CenterMonocytes (%) (Auto)2019-08-29 06:24:00* Test Item Value Reference Range Interpretation Comments Monocytes (%) (Auto) (test code = 5905-5) 8.3 4.4-11.3 [facility] CenterEosinophils (%) (Auto)2019-08-29 06:24:00 * Test Item Value Reference Range Interpretation Comments Eosinophils (%) (Auto) (test code = 713-8) 2.8 0.0-6.0 [facility] CenterBasophils (%) (Auto)2019-08-29 06:24:00* Test Item Value Reference Range Interpretation Comments Basophils (%) (Auto) (test code = 706-2) 0.8 0.0-1.0 [facility] CenterIM GRANULOCYTES %2019-08-29 06:24:00* Test Item Value Reference Range Interpretation Comments IM GRANULOCYTES % (test code = IM GRANULOCYTES %) 0.6 0.0- 1.0 [facility] CenterNeutrophils # (Auto)2019-08-29 06:24:00* Test Item Value Reference Range Interpretation Comments Neutrophils # (Auto) (test code = 751-8) 5.1 2.1-6.9 [facility] CenterLymphocytes # (Auto)2019-08-29 06:24:00* Test Item Value Reference Range Interpretation Comments Lymphocytes # (Auto) (test code = 18373-1) 1.9 1.0-3.2 [facility] CenterMonocytes # (Auto)2019-08-29 06:24:00* Test Item Value Reference Range Interpretation Comments Monocytes # (Auto) (test code = 742-7) 0.7 0.2-0.8 [facility] CenterEosinophils # (Auto)2019-08-29 06:24:00* Test Item Value Reference Range Interpretation Comments Eosinophils # (Auto) (test code = 711-2) 0.2 0.0-0.4 [facility] CenterBasophils # (Auto)2019-08-29 06:24:00* Test Item Value Reference Range Interpretation Comments Basophils # (Auto) (test code = 704-7) 0.1 0.0-0.1 [facility] CenterAbsolute Immature Granulocyte (auto 2019-08-29 06:24:00* Test Item Value Reference Range Interpretation Comments Absolute Immature Granulocyte (auto (edy t code = Absolute Immature Granulocyte (auto) 0.05 0-0.1 [facility] CenterCT ABDOMEN/PELVIS [id number] 10:14:00 [place] [address] Patient Name: ASYA CAMACHO MR #: [id number] : 1985 Age/Sex: 34/M Req #: [id number] Adm Physician: Ordered by: LUBNA DO MD Report #: [id number] Location: ER Room/Bed: Procedure: 1201-[address]/CT ABDOMEN/PELVIS W Exam Date: 08/25/19 Exam Time: 905 REPORT STATUS: Signed CT Abdomen And Pelvis with Intravenous Contrast INDICATION: look for appy, diverticulitis, pancreatitis, hernia, rup [id number] Y T ECHNIQUE: Thin collimation axial images obtained from the diaphragm to the lev el of the pubic symphysis following the uneventful administration of 100 cc o f low osmolar, nonionic intravenous contrast. Oral contrast was administered. Dose reduction techniques used: Automated exposure control, adjustment of the mAs and/or kVp according to patient size, standardized low-dose protocol, a nd/or iterative reconstruction technique. RADIATION DOSE: Total D LP: 826.8 mGy*cm Estimated effective dose: (DLP x 0.015 x size factor ) mSv CTDIvol has been reviewed. It is below the limits set by the Radiat ion Protocol Committee (RPC). COMPARISON: None. ABDOMEN FINDINGS: Lung Bases: Clear. The visualized portions of the mediastinum are normal.. Liver: Normal attenuation. No evidence for mass. Gallbladder: Present and appears normal. No biliary ductal dilatation. Pancreas: Normal attenua tion without mass or ductal dilatation. Spleen: Normal in size. No evidenc e of mass.. Adrenal Glands: No evidence for mass. Kidneys: Right : Normal enhancement. No soft tissue mass. No hydronephrosis. Left: Norm al enhancement. No soft tissue mass. No hydronephrosis. Lymph Nodes: No l ymphadenopathy. Aorta: Normal in diameter PELVIS FINDINGS: Slick el: Stomach: Normal. Small Bowel: Normal in caliber with normal wall thick ness. Enteric contrast present throughout Large Bowel: Contains enteric con trast. Diffuse diverticulosis particularly in the descending colon and sigmoid colon there is mural thickening and diverticular inflammation of the distal s igmoid colon. There are multiple droplets of air in the adjacent peritoneum. N o loculated fluid collection. Appendix: Contains enteric contrast and is no rmal. Bladder: Normal. Peritoneum/retroperitoneum: Small fluid collect ion in the cul-de-sac. No peripheral enhancement. Bones: No focal osseous lesions. Soft tissues: Fat-containing inguinal hernias, left larger than r ight. IMPRESSION: 1. Acute diverticulitis of the distal sigmoid colo n surrounded by multiple droplets of free air consistent with microperforation . No loculated fluid collection to suggest abscess. 2. Small amount of pelvic ascites. 3. Normal appendix. No evidence of bowel obstruction. Signed by: Dr. Delmis Head MD on 08/25/2019 10:18 AM Dictated By: Kristy HEAD MD 1018 Transcribed By: PITER on 08/25/19 1018 COPY TO: LUBNA DO MD Total Iktzgvege2392-96-15 08:28:00* Test Item Value Reference Range Interpretation Comments Total Bilirubin (test code = 1975-2) 0.3 0.2-1.2 [facility] CenterAspartate Amino Transf (AST/SGOT) 2019-08-25 08:28:00* Test Item Value Reference Range Interpretation Comments Aspartate Amino Transf (AST/SGOT) (test code = Aspartate Amino Transf (AST/SGOT)) 15 5-34 [facility] CenterAlanine Aminotransferase (ALT/SGPT) 2019-08-25 08:28:00* Test Item Value Reference Range Interpretation Comments Alanine Aminotransferase (ALT/SGPT) (test code = 1742-6) 15 0-55 [facility] CenterTotal Gphxglw6415-54-94 08:28:00* Test Item Value Reference Range Interpretation Comments Total Protein (test code = 2885-2) 7.2 6.5-8.1 [facility] CenterAlbumin2019-12-01 08:28:00* Test Item Value Reference Range Interpretation Comments Albumin (test code = 1751-7) 3.8 3.5-5.0 [facility] CenterGlobulin2019-12-01 08:28:00* Test Item Value Reference Range Interpretation Comments Globulin (test code = 37338-2) 3.4 2.3-3.5 [facility] CenterAlbumin/Globulin Vwtwb1404-15-91 08:28:00 * Test Item Value Reference Range Interpretation Comments Albumin/Globulin Ratio (test code = 1759-0) 1.1 0.8-2.0 [facility] CenterAlkaline Jtybzdzshgk5552-54-51 08:28:00* Test Item Value Reference Range Interpretation Comments Alkaline Phosphatase (test code = 6768-6) 55 40-150 [facility] CenterUrine [id number] 08:25:00* Test Item Value Reference Range Interpretation Comments Urine WBC (test code = 5821-4) 6-10 0-5 H [facility] CenterUrine [id number] 08:25:00* Test Item Value Reference Range Interpretation Comments Urine RBC (test code = 83262-6) 0-5 0-5 [facility] CenterUrine Drfbvbnb8669-20-39 08:25:00* Test Item Value Reference Range Interpretation Comments Urine Bacteria (test code = 38868-8) FEW NONE [facility] CenterUrine Epithelial Uwdvv5369-02-63 08:25:00 * Test Item Value Reference Range Interpretation Comments Urine Epithelial Cells (test code = 49491-1) FEW NONE [facility] CenterUrine Nzjvf3482-70-29 08:05:00* Test Item Value Reference Range Interpretation Comments Urine Color (test code = 5778-6) YELLOW YELLOW [facility] CenterUrine Wmbbmlt0262-13-56 08:05:00* Test Item Value Reference Range Interpretation Comments Urine Clarity (test code = 77471-3) CLEAR CLEAR [facility] CenterUrine Specific Wvghshu2904-72-29 08:05:00 * Test Item Value Reference Range Interpretation Comments Urine Specific [place] (test code = 5811-5) 1.025 1.010-1.02 5 [facility] CenterUrine [id number] 08:05:00* Test Item Value Reference Range Interpretation Comments Urine pH (test code = 00999-6) 6 5-7 [facility] CenterU[facility] Leukocyte Ixmjnqwf1413-89-44 08:05:00* Test Item Value Reference Range Interpretation Comments Urine Leukocyte Esterase (test code = 39949-6) NEGATIVE NEGATIV E [facility] CenterUrine Bagoqlj3918-15-18 08:05:00* Test Item Value Reference Range Interpretation Comments Urine Nitrite (test code = 19697-2) NEGATIVE NEGATIVE [facility] CenterUrine Plntcvy8535-03-46 08:05:00* Test Item Value Reference Range Interpretation Comments Urine Protein (test code = 29900-5) NEGATIVE NEGATIVE [facility] CenterUrine Glucose (UA)2019-08-25 08:05:00* Test Item Value Reference Range Interpretation Comments Urine Glucose (UA) (test code = 02839-5) NEGATIVE NEGATIVE [facility] CenterUrine Kefetjo5158-84-52 08:05:00* Test Item Value Reference Range Interpretation Comments Urine Ketones (test code = 63614-6) NEGATIVE NEGATIVE [facility] CenterU[facility] Vzyjqkxuahlp1857-92-18 08:05:00* Test Item Value Reference Range Interpretation Comments Urine Urobilinogen (test code = 01598-0) 0.2 0.2-1 [facility] CenterUrine Inwsupajd4428-80-06 08:05:00* Test Item Value Reference Range Interpretation Comments Urine Bilirubin (test code = 1977-8) NEGATIVE NEGATIVE [facility] CenterUrine Hftyj0855-88-03 08:05:00* Test Item Value Reference Range Interpretation Comments Urine Blood (test code = 50546-3) NEGATIVE NEGATIVE [facility]
[2020-03-06] MEDS ORDERED: CRINONE1.125 G1 (19:06)
--- NOTE | 2020-03-06 19:07 | NUR ---
Report to MARGARITA Chan
--- NOTE | 2020-03-06 20:27 | Diagnostic Imaging Report ---
EXAM: CXR 2 VIEW - [facility]OPD DATE: 03/06/2020 6:22 PM INDICATION: ^cough ^[id number] ^[id number] COMPARISON: None FINDINGS: Lines and tubes: None Heart size normal. No focal pulmonary opacity, pleural effusion or pneumothorax. Upper abdomen unremarkable. No acute bony abnormality. IMPRESSION: No evidence for acute disease. Signed by: Dr. Nico Murdock M.D. on 03/06/2020 8:24 PM
--- NOTE | 2020-03-06 20:30 | Emergency Department Note ---
History of Present Illnes History of Present Illness Chief Complaint: General Medicine Complaints History of Present Illness This is a 35 year old transgender female, with history of anxiety, GERD, diverticulitis, and chronic shortness of breath for the past year who presents to obtain a chest x-ray that was recommended by her nurse tech. Patient states that she has been seeing multiple specialists this past year, to try and elucidate the cause of her persistent, dry cough. She states she recently had pulmonary function tests with pulmonology, and they were "normal." Patient states that she's been placed on albuterol and Qvar for her cough. She states the albuterol makes her heart race, and she doesn't like taking it. She was tolerating Qvar, but this was changed to Symbicort yesterday, by her nurse tech. Patient started the inhaler yesterday, and states that it seems to "make her chest feel more tight, and short of breath." She last used to Symbicort's morning. She contacted her nurse tech regarding the symptoms, and they recommended that she be evaluated and have a chest x-ray. She had no fever, chills, nausea, vomiting, or sputum production. She states that she had a Covid test approximately one month ago, that was negative. She denies any chest pain, heaviness, dizziness, or diaphoresis. Her current symptoms are the same as what she has been experiencing throughout this past year. She is speaking in full sentences, is in no acute distress, respiratory rate is normal and oxygen saturation 100% on room air. 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 Required: No Onset (how long ago): year(s) Location: chest Quality: tight, sob Radiation: Reports non-radiation Severity: mild Onset quality: unable to specify Duration (how long): month(s) (at least 1 year) Timing of current episode: intermittent Progression: waxing and waning Chronicity: recurrent Context: Reports new medications (Symbicort); Denies recent illness, Denies recent travel Relieving factors: none Exacerbating factors: none Associated symptoms: Reports cough (dry), Reports shortness of breath; Denies chest pain, Denies diaphoresis, Denies fever/chills, Denies syncope, Denies weakness Treatments prior to arrival: none Previous service: medications given Past Medical/Family History Physician Review I have reviewed the patient's past medical and family history. Any updates have been documented here. Past Medical History Recent Fever: No Clinical Suspicion of Infectio: No New/Unexplained Change in Ment: No Past Medical History: CAD (RBBB), Anxiety, Depression, GERD Other Medical History: diverticulitis MATTHEW - on CPAP transgender (identifies as female) Past Surgical History: None Social History Smoking Cessation: Never Smoker Counseling Performed: No Alcohol Use: None Any Illegal Drug Use: No TB Exposure/Symptoms: No Physically hurt or threatened: No Family History Family history of heart diseas: No Other Last Tetanus: UTD Any Pre-Existing Lines (PICC,: No Is patient up to date on immun: Yes Last Flu: UTD Last Pneumovax: none Review of Systems Review of Systems Constitutional: Reports no symptoms; Denies chills, Denies fever, Denies malaise EENTM: Reports no symptoms Cardiovascular: Denies chest pain, Denies palpitations, Denies syncope Respiratory: Reports cough, Reports snoring (Sleep Apnea); Denies excessive phlegm production, Denies pain on inspiration, Denies pain with cough, Denies dyspnea, Denies dyspnea on exertion Gastrointestinal: Denies nausea, Denies vomiting Musculoskeletal: Reports no symptoms Integumentary: Reports no symptoms Neurological: Reports no symptoms; Denies numbness, Denies paresthesia, Denies tingling Psychological: Reports anxiety Hematological/Lymphatic: Reports no symptoms; Denies anemia, Denies blood clots Physical Exam Related Data Allergies: Coded Allergies: No Known Allergies (Unverified , 08/25/19) Triage Vital Signs Vital Signs Date Time Temp Pulse Resp B/P (MAP) Pulse Ox O2 Delivery O2 Flow Rate FiO2 03/06/20 18:00 99.9 100 18 122/77 100 Physical Exam CONSTITUTIONAL Constitutional: Present well-developed, Present well-nourished, Present obese; Absent distressed, Absent ill appearing HENT HENT: Present normocephalic, Present atraumatic, Present oropharynx clear/moist, Present nose normal HENT L/R: Present left ext ear normal, Present right ext ear normal EYES Eyes: Reports PERRL, Reports conjunctivae normal NECK Neck: Present ROM normal PULMONARY Pulmonary: Present effort normal, Present breath sounds normal; Absent respiratory distress, Absent rhonchi, Absent chest tenderness CARDIOVASCULAR Cardiovascular: Present regular rhythm, Present heart sounds normal, Present capillary refill normal, Present normal rate; Absent murmur GASTROINTESTINAL GENITOURINARY SKIN Skin: Present warm, Present dry; Absent rash MUSCULOSKELETAL Musculoskeletal: Present ROM normal NEUROLOGICAL Neurological: Present alert, Present oriented x 3, Present no gross motor or sensory deficits PSYCHOLOGICAL Psychological: Present mood/affect normal, Present judgement normal Results Imaging Imaging results reviewed: Yes Impressions [place] [address] Patient Name: ASYA CAMACHO MR #: [id number] : 1985 Age/Sex: 35/F Req #: [id number] Adm Physician: Ordered by: NILESH WILDER MD Report #: [id number] Location: [facility] Room/Bed: Procedure: [id number] HOPD/CXR 2 VIEW - HOPD Exam Date: 03/06/20 Exam Time: 1821 REPORT STATUS: Signed EXAM: CXR 2 VIEW - HOPD DATE: 03/06/2020 6:22 PM INDICATION: ^cough ^[id number] ^[id number] COMPARISON: None FINDINGS: Lines and tubes: None Heart size normal. No focal pulmonary opacity, pleural effusion or pneumothorax. Upper abdomen unremarkable. No acute bony abnormality. IMPRESSION: No evidence for acute disease. Signed by: Dr. Corrie Novoa M.D. on 03/06/2020 8:24 PM Dictated By: CORRIE NOVOA MD 23 Transcribed By: PITER on 03/06/202023 COPY TO: NILESH WILDER MD~ Assessment & Plan Medical Decision Making MDM - Discussed with patient that her chest x-ray was clear, and negative for any acute disease process including pneumonia or pleural effusion. - Patient is advised to follow her specialists, including allergy and pulmonology, for further management of this chronic problem. - Patient voiced understanding of the plan, and ambulated out of the emergency room, in no acute distress. Assessment & Plan Final Impression: (1) Bronchospasm (2) Persistent dry cough (3) Shortness of breath (4) Anxiety Depart Disposition: HOME, SELF-CARE Last Vital Signs Date Time Temp Pulse Resp B/P (MAP) Pulse Ox O2 Delivery O2 Flow Rate FiO2 03/06/20 18:00 99.9 100 18 122/77 100 Home Meds Reported Medications Progesterone, Micronized (Crinone) 1.125 Gm Gel.pf.martina 03/06/20 Omeprazole Magnesium (PRILOSEC) 10 Mg Suspdr.pkt, 40 MG PO DAILY 08/25/19 Estradiol Hemihydrt,Micronized (ESTRADIOL) 1 Gm Powder, 20 MG IM weekly 08/25/19 Discontinued Reported Medications Metronidazole (FLAGYL) 250 Mg Tablet, 500 MG PO Q8H, #42 08/29/19 Ciprofloxacin Hcl (CIPRO) 500 Mg Tablet, 500 MG PO Q12H for 28 Days, #30 TAB 08/29/19 NILESH WILDER MD Mar 06, 2020 20:30
== END 2020-03-06 21:03 | disposition home or self-care (01) ==
LOC: FSED 17:35
DX: R05 Cough (principal); R06.02 Shortness of breath; J98.01 Acute bronchospasm; F41.9 Anxiety disorder, unspecified
CPT/HCPCS: 71046; 99283

== ENCOUNTER 2020-06-04 09:59 | Observation (INO) | payer OTHER ==
[~2020-06-04] VITALS: Ht 180.3 cm; Wt 129.3 kg
[~2020-06-04 09:59] MED LIST changes: +CRINONE1.125 G1
--- OUTSIDE RECORDS SUMMARY | 2020-06-04 10:31 | XMS REPORT | Continuity of Care Document ---
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 [employer] Forms Name Role Phone NONSTAFF PCP Unavailable Tr WILDER Attphys Unavailable Abdiaziz DO Attphys Unavailable Payers Payer Name Policy Type Policy Number Effective Date Expiration Date [employer] [id number] 2019 00:00:00 00:00:00 [facility] Problems Condition Name Condition Details Condition Category Status Onset Date Resolution Date Last Treatment Date Treating Clinician Comments Source Diverticulitis of large intestine Diverticulitis large intestine Pr oblem Active [facility] Perforation of intestine Perforated bowel Problem Active [facility] Allergies, Adverse Reactions, Alerts Allergy Name Allergy Type Status Severity Reaction(s) Onset Date Inacti ve Date Treating Clinician Comments Source No Known Allergies DA Active U 2020-05-06 00:00:00 [facility] Social History Social Habit Start Date Stop Date Quantity Comments Source Sex Assigned At 1985 00:00:00 1985 00[birth year]:00 Female [facility] Medications Ordered Medication Name Filled Medication Name Start Date Stop Da te Current Medication? Ordering Clinician Indication Dosage Frequency Signature (SIG) Comments Components Source Estradiol Hemihydrt,Micronized (Estradiol) 1 Gm POWDER Estradiol Hemihydrt,Micronized (Estradiol) 1 Gm POWDER Yes 20 Weekly [facility] Omeprazole Magnesium (Prilosec) 10 Mg SUSPDR.PKT Omepr azole Magnesium (Prilosec) 10 Mg SUSPDR.PKT Yes 40 Daily [facility] Progesterone, Micronized (Crinone) 1.125 Gm GEL.PF.RYAN Progesterone, Micronized (Crinone) 1.125 Gm GEL.PF.RYAN Yes [facility] Ciprofloxacin Hcl (Cipro) 500 Mg TABLET Ciprofloxacin Hcl (C ipro) 500 Mg TABLET 2020-03-06 00:00:00 No 500 Every 12 Hours [facility] Metronidazole (Flagyl) 250 Mg TABLET Metronidazole (Flagyl) 250 Mg TABLET 2020-03-06 00:00:00 No 500 Every 8 Hours [facility] Vital Signs Vital Name Observation Time Observation Value Comments Source Weight 2020-03-06 18:00:00 266.06 [lb_av] [facility] BMI (Body Mass Index) 2020-03-06 18:00:00 37.1 kg/m2 [facility] Body Temperature 2019-08-29 10:17:00 99.0 [degF] [facility] Procedures Procedure Date / Time Performed Performing Clinician [facility] Computed tomography of abdomen and pelvis with contrast 2018 00:00:00 LUBNA DO [facility] Plan of Care Planned Activity Planned Date Details Comments Source Instructions Dyspnea [facility] Encounters Start Date/Time End Date/Time Encounter Type Admission Type Attendi [facility] Care Department Encounter ID Source 2020-03-06 17:35:00 2020-03-06 21:03:00 Departed Emergency Room 1 NILESH WILDER [facility] [id number] [facility] 2019-08-25 09:41:00 2019-08-29 14:45:00 Discharged Inpatient 1 LUBNA DO [facility] [id number] [facility] 2019-08-06 10:57:00 2019-08-06 10:57:00 Registered Clinic [facility] [id number] [facility] Results Test Description Test Time Test Comments Results Result Comments Source SURGICAL SPECIMENS 2020-05-13 09:39:00 RUN DATE: 05/13/20 [facility] - LAB PAGE 1 RUN TIME: 938 Specimen Inquiry RUN USER: INTERFACE PATIENT: ASYA CAMACHO LOC: AnjelicaLexiiKI U #: [id number] AGE/SX: 35/F ROOM: RE05/11/20[facility] DR: Dustin Alas MD : 87 BED: DIS: STATUS: DEP RENAE TLOC: SPEC #: [id number] RECD: 05/11/20 STATUS: JENNIFER RODRIGUEZ #: [id number] TREMAINE: 05/11/[address] [facility] [address]: Dustin Alas MD ENTERED: 05/11/20 SP TYPE: SURG OTHR DR: Undefined Provider ORDERED: PATHGM4, PATH SPEC, H E STAIN HISTOLOGY: TISSUE ID BLK PCS BLANCA LEV / PROCEDURE DISPOSITION ____ ___ ___ ___ ___ TESTIS, OTHER A 2 1 TISSUES: A. TESTIS, OTHER THAN TUMOR/BIOPSY/CASTRATION - Bilateral Testes CLINICAL HISTORY Gender Dysphoria FINAL DIAGNOSIS BILATERAL TESTES, ORCHIECTOMY: - NO DIAGNOSTIC ABNORMALITY IS IDENTIFIED. CPT: 78812Z4 GROSS DESCRIPTION Received in formalin labeled with patient's name, medical record number and designated "bilateral testes" are two separate testicles and attached spermatic cords. The testes are not designated as to laterality. The first testicle is 19 g and 2.8 x 2.5 x 1.8 cm with 4 x 1 x 0.5 cm epididymis. The spermatic cord is 5 x 0.8 cm. The tunica albuginea is smooth. The testicular parenchyma is spongy brown-gold without any masses. The second testis is 23 g and is 4 x 2.8 x 2.2 cm with 4.8 x 0.7 cm epididymis. The spermatic cord is 5 x 1 cm. The tunica albuginea of the testis is smooth. The parenchyma is spongy brown-gold without any masses. Biomedical Technician sections of each testis and epididymis are submitted. SECTION CODE: A1, first testis; A2, second testis. Amado Signed SIGNATURE ON FILE Summer Mccarthy MD 05/13/20 0939 END OF REPORT Novel Coronavirus 20182020-05-07 08:56:00 Test Item Novel Coronavirus 2019 nCoV (test code = COVID19) Not Detected Not Detected Testing was performed using the Aptima SARS-CoV-2 assay.This test was developed and its performance characteristicsdetermined by [employer]. This test has not beenFDA cleared or approved. This test has been authorized by[employer] under an Emergency Use Authorization (EUA). This testis only authorized for the duration of time the declarationthat circumstances exist justifying the authorization ofthe emergency use of in vitro diagnostic tests fordetection of SARS-CoV-2 virus and/or diagnosis of COVID-19infection under section 564(b)(1) of the Act, 21 U.S.C.360bbb-3(b)(1), unless the authorization is terminated orrevoked sooner. When diagnostic testing is negative, thepossibility of a false negative result should be consideredin the context of a patient's recent exposures and thepresence of clinical signs and symptoms consistent withCOVID- 19. An individual without symptoms of COVID-19 andwho is not shedding SARS-CoV-2 virus would expect to have anegative (not detected) result in this assay.Perf ormed At: [address] [id number] Rodney Machado MD Ph:[phone] Novel Coronavirus 06:11:00* Test Item Value Reference Range Interpretation Comments Novel Coronavirus 2019 nCoV (test code = COVID19) Not Detected Not Detected Testing was performed using the Aptima SARS-CoV-2 assay.This test was developed and its performance characteristicsdetermined by [employer]. This test has not beenFDA cleared or approved. This test has been authorized by[employer] under an Emergency Use Authorization (EUA). This testis only authorized for the duration of time the declarationthat circumstances exist justifying the authorization ofthe emergency use of in vitro diagnostic tests fordetection of SARS-CoV-2 virus and/or diagnosis of COVID-19infection under section 564(b)(1) of the Act, 21 U.S.C.360bbb-3(b)(1), unless the authorization is terminated orrevoked sooner. When diagnostic testing is negative, thepossibility of a false negative result should be consideredin the context of a patient's recent exposures and thepresence of clinical signs and symptoms consistent withCOVID- 19. An individual without symptoms of COVID-19 andwho is not shedding SARS-CoV-2 virus would expect to have anegative (not detected) result in this assay.Perf ormed At: [facility] [id number] [place], [place] [id number] Rodney Machado MD Ph:[phone] BASIC METABOLIC [id number] 13:24:00* Test Item Value Reference Range Interpretation Comments SODIUM (test code = NA) 136 MMOL/L 136-143 N POTASSIUM (test code = K) 3.9 MMOL/L 3.5-5.1 N CHLORIDE (test code = CL) 100 MMOL/L 98-107 N CARBON DIOXIDE (test code = CO2) 24 mmol/L 24-31 N GLUCOSE (test code = GLU) 85 mg/dL 70-104 N BLOOD UREA NITROGEN (test code = BUN) 6.3 MG/DL 7.0-21.0 L GLOMERULAR FILTRATION RATE (test code = GFR) >=60 max estimate >60 The estimated glomerular filtration rate is computed usingpatient race, age (>18), sex, and serum creatinine. If anyof the needed data elements are missing the Laboratory cannot compute an estimation of the glomerular filtration rate. CREATININE (test code = CREAT) 0.5 mg/dL 0.8-1.5 L CALCIUM (test code = CA) 9.1 mg/dL 8.8-10.2 N CBC W/AUTO [id number] 12:55:00* Test Item Value Reference Range Interpretation Comments WHITE BLOOD CELL (test code = WBC) 10.1 x10 3/uL 4.8-10.8 N RED BLOOD CELL (test code = RBC) 4.25 x10 6/uL 4.20-5.40 N HEMOGLOBIN (test code = HGB) 12.6 g/dL 14.5-20 L HEMATOCRIT (test code = HCT) 37.2 % 37.0-47.0 N MEAN CELL VOLUME (test code = MCV) 87.5 fL 81.0-99.0 N MEAN CELL HGB (test code = MCH) 29.6 pg 27-31 N MEAN CELL HGB CONCENTRATION (test code = MCHC) 33.9 G/DL 33-36.5 N RED CELL DISTRIBUTION WIDTH (test code = RDW) 13.3 % 12.9-16. 9 N PLATELET COUNT (test code = PLT) 357 150-440 N MEAN PLATELET VOLUME (test code = MPV) 10.6 fL 8.9-12.4 N NEUTROPHIL % (test code = NT%) 74.6 % 42.2-75.2 N LYMPHOCYTE % (test code = LY%) 17.2 % 20.5-51.1 L MONOCYTE % (test code = MO%) 6.4 % 1.7-9.3 N EOSINOPHIL % (test code = EO%) 0.8 % 0.0-7.0 N BASOPHIL % (test code = BA%) 0.5 % 0-2.5 N NEUTROPHIL # (test code = NT#) 7.52 x10 3/uL 1.80-7.70 N LYMPHOCYTE # (test code = LY#) 1.73 x10 3/uL 1.00-4.80 N MONOCYTE # (test code = MO#) 0.64 x10 3/uL 0.00-0.80 N EOSINOPHIL # (test code = EO#) 0.08 x10 3/uL 0.00-0.45 N BASOPHIL # (test code = BA#) 0.05 x10 3/uL 0.0-0.20 N CXR 2 [facility] - [id number] 20:22:00 [place] [address] Patient Name: ASYA CAMACHO MR #: [id number] : 1985 Age/Sex: 35/F Req #: [id number] Adm Physician: Ordered by: NILESH WILDER MD Report #: [id number] Location: [facility] Room/Bed: Procedure: [id number] HOPD/CXR 2 VIEW - HOPD Exam Date: 03/06/20 Exam Time: 1821 REPORT STATUS: Signed EXAM: CXR 2 V IEW - HOPD DATE: 03/06/2020 6:22 PM INDICATION: cough [id number] COMPARISON: None FINDINGS: Lines and tubes: None Heart size normal. No focal pulmonary opacity, pleural effusion or pn eumothorax. Upper abdomen unremarkable. No acute bony abnormality. IMP RESSION: No evidence for acute disease. Signed by: Danya Street on 03/06/2020 8:24 PM Dictated By: CORRIE NOVOA MD Electronically Sign ed By: CORRIE NOVOA MD on 03/06/202023 Transcribed By: PITER on 03/06/20 COPY TO: NILESH WILDER MD Sodium Vrzsp7876-16-52 06:45:00* Test Item Value Reference Range Interpretation Comments Sodium Level (test code = 2951-2) 139 136-145 [facility]assium Vlrno5808-31-72 06:45:00* Test Item Value Reference Range Interpretation Comments Potassium Level (test code = 2823-3) 3.6 3.5-5.1 [facility]vineChloride Jvodc1381-03-37 06:45:00* Test Item Value Reference Range Interpretation Comments Chloride Level (test code = 2075-0) 103 98-107 [facility]vineCarbon Dioxide Pljao1298-80-21 06:45:00* Test Item Value Reference Range Interpretation Comments Carbon Dioxide Level (test code = 2028-9) 26 22-29 [facility]vineAnion [id number] 06:45:00* Test Item Value Reference Range Interpretation Comments Anion Gap (test code = 98609-9) 13.6 8-16 [facility]vineBlood Urea Isxgalun5260-09-62 06:45:00* Test Item Value Reference Range Interpretation Comments Blood Urea Nitrogen (test code = 3094-0) 5 7-26 L [facility]vineCreatinine2019-12-05 06:45:00* Test Item Value Reference Range Interpretation Comments Creatinine (test code = 2160-0) 0.82 0.72-1.25 [facility]vineBUN/Creatinine Qmwjb6757-48-77 06:45:00* Test Item Value Reference Range Interpretation Comments BUN/Creatinine Ratio (test code = 3097-3) 6 6-25 [facility] GrapevineEstimat Glomerular Filtration Rate 2019-08-29 06:45:00* Test Item Value Reference Range Interpretation Comments Estimat Glomerular Filtration Rate (test code = 684803765) > 60 >60 Ranges were taken from the National Kidney Disease Education Program and the [facility] literature.Reference ranges:60 or greater: Ikdrac36-01 ( for 3 consecutive months): Chronic kidney disease 15 or less: Kidney failureBaylor Scott & White Medical Center – GrapevineGlucose Zzzcq6852-63-33 06:45:00* Test Item Value Reference Range Interpretation Comments Glucose Level (test code = MDV7985) 91 74-118 [facility]vineCalcium Zjkse1291-52-49 06:45:00* Test Item Value Reference Range Interpretation Comments Calcium Level (test code = 88650-5) 9.0 8.4-10.2 [facility]vineWhite Blood Xppgw1467-96-53 06:24:00* Test Item Value Reference Range Interpretation Comments White Blood Count (test code = 6690-2) 7.92 4.8-10.8 [facility] G[facility]vineRed Blood Xvchz6450-87-07 06:24:00* Test Item Value Reference Range Interpretation Comments Red Blood Count (test code = 789-8) 4.01 4.3-5.7 L [facility]vineHemoglobin2019-12-05 06:24:00* Test Item Value Reference Range Interpretation Comments Hemoglobin (test code = 60389-7) 11.8 14.0-18.0 L [facility]vineHematocrit2019-12-05 06:24:00* Test Item Value Reference Range Interpretation Comments Hematocrit (test code = 4544-3) 35.8 38.2-49.6 L [facility] GrapevineMean Corpuscular Imjshj0911-36-66 06:24:00* Test Item Value Reference Range Interpretation Comments Mean Corpuscular Volume (test code = 787-2) 89.3 81-99 [facility] GrapevineMean Corpuscular Zjxauwqlgp1508-26-25 06:24:00* Test Item Value Reference Range Interpretation Comments Mean Corpuscular Hemoglobin (test code = 785-6) 29.4 28-32 [facility] GrapevineMean Corpuscular Hemoglobin Concent 2019-08-29 06:24:00* Test Item Value Reference Range Interpretation Comments Mean Corpuscular Hemoglobin Concent (test code = 786-4) 33.0 31-35 [facility] GrapevineRed Cell Distribution Rccwu8833-93-48 06:24:00* Test Item Value Reference Range Interpretation Comments Red Cell Distribution Width (test code = 85086-3) 12.8 11.7 -14.4 [facility] GrapevinePlatelet Frnxy5700-45-68 06:24:00* Test Item Value Reference Range Interpretation Comments Platelet Count (test code = 777-3) 362 140-360 H [facility]vineNeutrophils (%) (Auto)2019-08-29 06:24:00 * Test Item Value Reference Range Interpretation Comments Neutrophils (%) (Auto) (test code = 90154-6) 63.9 38.7-80.0 [facility]vineLymphocytes (%) (Auto)2019-08-29 06:24:00 * Test Item Value Reference Range Interpretation Comments Lymphocytes (%) (Auto) (test code = 736-9) 23.6 18.0-39.1 [facility]vineMonocytes (%) (Auto)2019-08-29 06:24:00* Test Item Value Reference Range Interpretation Comments Monocytes (%) (Auto) (test code = 5905-5) 8.3 4.4-11.3 [facility]vineEosinophils (%) (Auto)2019-08-29 06:24:00 * Test Item Value Reference Range Interpretation Comments Eosinophils (%) (Auto) (test code = 713-8) 2.8 0.0-6.0 [facility]vineBasophils (%) (Auto)2019-08-29 06:24:00* Test Item Value Reference Range Interpretation Comments Basophils (%) (Auto) (test code = 706-2) 0.8 0.0-1.0 [facility] GrapevineIM GRANULOCYTES %2019-08-29 06:24:00* Test Item Value Reference Range Interpretation Comments IM GRANULOCYTES % (test code = IM GRANULOCYTES %) 0.6 0.0- 1.0 [facility]vineNeutrophils # (Auto)2019-08-29 06:24:00* Test Item Value Reference Range Interpretation Comments Neutrophils # (Auto) (test code = 751-8) 5.1 2.1-6.9 [facility]vineLymphocytes # (Auto)2019-08-29 06:24:00* Test Item Value Reference Range Interpretation Comments Lymphocytes # (Auto) (test code = 20065-0) 1.9 1.0-3.2 [facility]vineMonocytes # (Auto)2019-08-29 06:24:00* Test Item Value Reference Range Interpretation Comments Monocytes # (Auto) (test code = 742-7) 0.7 0.2-0.8 [facility]vineEosinophils # (Auto)2019-08-29 06:24:00* Test Item Value Reference Range Interpretation Comments Eosinophils # (Auto) (test code = 711-2) 0.2 0.0-0.4 [facility]vineBasophils # (Auto)2019-08-29 06:24:00* Test Item Value Reference Range Interpretation Comments Basophils # (Auto) (test code = 704-7) 0.1 0.0-0.1 [facility] GrapevineAbsolute Immature Granulocyte (auto 2019-08-29 06:24:00* Test Item Value Reference Range Interpretation Comments Absolute Immature Granulocyte (auto (edy t code = Absolute Immature Granulocyte (auto) 0.05 0-0.1 [facility]vineB[facility]entia health leukocytes automated count (number/volume)2019-08-29 05:00:00* Test Item Value Reference Range Interpretation Comments White Blood Count (test code = 6690-2) 7.92 4.8-10.8 [facility]vineBlood erythrocytes automated count (number/volume)2019-08-29 05:00:00* Test Item Value Reference Range Interpretation Comments Red Blood Count (test code = 789-8) 4.01 4.3-5.7 [facility] (moles/volume)2019-08-29 05:00:00* Test Item Value Reference Range Interpretation Comments Hemoglobin (test code = 22477-0) 11.8 14.0-18.0 [facility] GrapevineAutomated blood hematocrit (volume fraction)2019-08-29 05:00:00* Test Item Value Reference Range Interpretation Comments Hematocrit (test code = 4544-3) 35.8 38.2-49.6 [facility] GrapevineAutomated erythrocyte mean corpuscular ikxmta1720-12-11 05:00:00* Test Item Value Reference Range Interpretation Comments Mean Corpuscular Volume (test code = 787-2) 89.3 81-99 [facility] GrapevineAutomated erythrocyte mean corpuscular hemoglobin (mass per erythrocyte)2019-08-29 05:00:00* Test Item Value Reference Range Interpretation Comments Mean Corpuscular Hemoglobin (test code = 785-6) 29.4 28-32 [facility] GrapevineAutomated erythrocyte mean corpuscular hemoglobin concentration measurement (mass/volume)2019-08-29 05:00:00* Test Item Value Reference Range Interpretation Comments Mean Corpuscular Hemoglobin Concent (test code = 786-4) 33.0 31-35 [facility] GrapevineRDW RhkLg-Sve8177-52-05 05:00:00* Test Item Value Reference Range Interpretation Comments Red Cell Distribution Width (test code = 01511-4) 12.8 11.7 -14.4 [facility] GrapevineAutomated blood platelet count (count/volume)2019-08-29 05:00:00* Test Item Value Reference Range Interpretation Comments Platelet Count (test code = 777-3) 362 140-360 [facility] GrapevineAutomated blood segmented neutrophil count as percentage of total hcwrjogwcj5175-00-13 05:00:00* Test Item Value Reference Range Interpretation Comments Neutrophils (%) (Auto) (test code = 94562-5) 63.9 38.7-80.0 [facility] GrapevineAutomated blood lymphocyte count as percentage ot total swsadnwsys3483-26-93 05:00:00* Test Item Value Reference Range Interpretation Comments Lymphocytes (%) (Auto) (test code = 736-9) 23.6 18.0-39.1 [facility] GrapevineAutomated blood monocyte count as percentage of total hsvryhxcqs2857-09-25 05:00:00* Test Item Value Reference Range Interpretation Comments Monocytes (%) (Auto) (test code = 5905-5) 8.3 4.4-11.3 [facility] GrapevineAutomated blood eosinophil count as percentage of total mppfcjpxuw9765-45-53 05:00:00* Test Item Value Reference Range Interpretation Comments Eosinophils (%) (Auto) (test code = 713-8) 2.8 0.0-6.0 [facility] GrapevineAutomated blood basophil count as percentage of total jrscdispyj4504-44-66 05:00:00* Test Item Value Reference Range Interpretation Comments Basophils (%) (Auto) (test code = 706-2) 0.8 0.0-1.0 [facility] GrapevineFluoroscopic procedure less than one hour kepddsly5957-50-95 05:00:00* Test Item Value Reference Range Interpretation Comments IM GRANULOCYTES % (test code = IM GRANULOCYTES %) 0.6 0.0- 1.0 [facility] GrapevineAutomated blood neutrophil count 2019-08-29 05:00:00* Test Item Value Reference Range Interpretation Comments Neutrophils # (Auto) (test code = 751-8) 5.1 2.1-6.9 [facility]vineBlood lymphocytes count (number/volume) 2019-08-29 05:00:00* Test Item Value Reference Range Interpretation Comments Lymphocytes # (Auto) (test code = 51687-3) 1.9 1.0-3.2 [facility] GrapevineBlood monocytes automated count (number/volume)2019-08-29 05:00:00* Test Item Value Reference Range Interpretation Comments Monocytes # (Auto) (test code = 742-7) 0.7 0.2-0.8 [facility] GrapevineAutomated blood eosinophil count 2019-08-29 05:00:00* Test Item Value Reference Range Interpretation Comments Eosinophils # (Auto) (test code = 711-2) 0.2 0.0-0.4 [facility] GrapevineAutomated blood basophil count (count/volume)2019-08-29 05:00:00* Test Item Value Reference Range Interpretation Comments Basophils # (Auto) (test code = 704-7) 0.1 0.0-0.1 [facility] GrapevineFluoroscopic procedure less than one hour fmrjdlxy7823-41-59 05:00:00* Test Item Value Reference Range Interpretation Comments Absolute Immature Granulocyte (auto (edy t code = Absolute Immature Granulocyte (auto) 0.05 0-0.1 [facility]erum or plasma sodium measurement (moles/volume)2019-08-29 05:00:00* Test Item Value Reference Range Interpretation Comments Sodium Level (test code = 2951-2) 139 136-145 [facility] Hospitalerum or plasma potassium measurement (moles/volume)2019-08-29 05:00:00* Test Item Value Reference Range Interpretation Comments Potassium Level (test code = 2823-3) 3.6 3.5-5.1 [facility] Hospitalerum or plasma chloride measurement (moles/volume)2019-08-29 05:00:00* Test Item Value Reference Range Interpretation Comments Chloride Level (test code = 2075-0) 103 98-107 [facility] Hospitalerum or plasma carbon dioxide, total measurement (moles/volume)2019-08-29 05:00:00* Test Item Value Reference Range Interpretation Comments Carbon Dioxide Level (test code = 2028-9) 26 22-29 [facility] Hospitalerum or plasma anion xyv5927-23-89 05:00:00* Test Item Value Reference Range Interpretation Comments Anion Gap (test code = 18552-1) 13.6 8-16 [facility] Hospitalerum or plasma urea nitrogen measurement (mass/volume)2019-08-29 05:00:00* Test Item Value Reference Range Interpretation Comments Blood Urea Nitrogen (test code = 3094-0) 5 7-26 [facility] Hospitalerum or plasma creatinine measurement (mass/volume)2019-08-29 05:00:00* Test Item Value Reference Range Interpretation Comments Creatinine (test code = 2160-0) 0.82 0.72-1.25 [facility] Hospitalerum or plasma urea nitrogen/creatinine mass vvsht1017-41-86 05:00:00* Test Item Value Reference Range Interpretation Comments BUN/Creatinine Ratio (test code = 3097-3) 6 6-25 [facility] GrapevineEstimated glomerular filtration rate (GFR) atcykzoibvtqw9434-32-90 05:00:00* Test Item Value Reference Range Interpretation Comments Estimat Glomerular Filtration Rate (test code = 321756633) > 60 >60 Ranges were taken from the National Kidney Disease Education Program and the [facility] literature.Reference ranges:60 or greater: Czjgkt38-78 ( for 3 consecutive months): Chronic kidney disease 15 or less: Kidney failureB[facility] GrapevineGlucose jyinhmzsmrc3556-54-12 05:00:00* Test Item Value Reference Range Interpretation Comments Glucose Level (test code = DFO8230) 91 74-118 [facility] plasma calcium measurement (mass/volume)2019-08-29 05:00:00* Test Item Value Reference Range Interpretation Comments Calcium Level (test code = 91936-9) 9.0 8.4-10.2 [facility]rapevineCT ABDOMEN/PELVIS [id number] 10:14:00 [facility] [place] [address] Patient Name: ASYA CAMACHO MR #: [id number] : 1985 Age/Sex: 34/M Req #: [id number] Adm Physician: Ordered by: LUBNA DO MD Report #: [id number] Location: ER Room/Bed: Procedure: 1201-[address]/CT ABDOMEN/PELVIS W Exam Date: 08/25/19 Exam Time: 905 REPORT STATUS: Signed CT Abdomen And Pelvis with Intravenous Contrast INDICATION: look for appy, diverticulitis, pancreatitis, hernia, rup [id number] Y T ECHNIQUE: Thin collimation axial [...] ymphadenopathy. Aorta: Normal in diameter PELVIS FINDINGS: [place] el: Stomach: Normal. Small Bowel: Normal in [...] 1018 COPY TO: LUBNA DO MD Total Wzykhhvkk0738-14-26 08:28:00* Test Item Value Reference Range Interpretation Comments Total Bilirubin (test code = 1975-2) 0.3 0.2-1.2 [facility] GrapevineAspartate Amino Transf (AST/SGOT) 2019-08-25 08:28:00* Test Item Value Reference Range Interpretation Comments Aspartate Amino Transf (AST/SGOT) (test code = Aspartate Amino Transf (AST/SGOT)) 15 5-34 [facility] GrapevineAlanine Aminotransferase (ALT/SGPT) 2019-08-25 08:28:00* Test Item Value Reference Range Interpretation Comments Alanine Aminotransferase (ALT/SGPT) (test code = 1742-6) 15 0-55 [facility]rapevineTotal [id number] 08:28:00* Test Item Value Reference Range Interpretation Comments Total Protein (test code = 2885-2) 7.2 6.5-8.1 [facility]rapevineAlbumin2019-12-01 08:28:00* Test Item Value Reference Range Interpretation Comments Albumin (test code = 1751-7) 3.8 3.5-5.0 [facility]vineGlobulin2019-12-01 08:28:00* Test Item Value Reference Range Interpretation Comments Globulin (test code = 25216-5) 3.4 2.3-3.5 [facility]vineAlbumin/Globulin [id number] 08:28:00 * Test Item Value Reference Range Interpretation Comments Albumin/Globulin Ratio (test code = 1759-0) 1.1 0.8-2.0 [facility]vineAlkaline Bsonwknyzxf6184-66-87 08:28:00* Test Item Value Reference Range Interpretation Comments Alkaline Phosphatase (test code = 6768-6) 55 40-150 [facility] GrapevineUrine [id number] 08:25:00* Test Item Value Reference Range Interpretation Comments Urine WBC (test code = 5821-4) 6-10 0-5 H [facility] GrapevineUrine [id number] 08:25:00* Test Item Value Reference Range Interpretation Comments Urine RBC (test code = 80420-0) 0-5 0-5 [facility]vineUrine Wpsocqig8515-91-69 08:25:00* Test Item Value Reference Range Interpretation Comments Urine Bacteria (test code = 25279-6) FEW NONE [facility]vineUrine Epithelial Ibpkc7847-28-91 08:25:00 * Test Item Value Reference Range Interpretation Comments Urine Epithelial Cells (test code = 43018-8) FEW NONE [facility]vineU[facility] Vvanc3952-01-26 08:05:00* Test Item Value Reference Range Interpretation Comments Urine Color (test code = 5778-6) YELLOW YELLOW [facility]vineUrine Rnyfkqm9070-77-63 08:05:00* Test Item Value Reference Range Interpretation Comments Urine Clarity (test code = 31665-2) CLEAR CLEAR [facility]vineUrine Specific [id number] 08:05:00 * Test Item Value Reference Range Interpretation Comments Urine Specific [place] (test code = 5811-5) 1.025 1.010-1.02 5 [facility]vineU[facility] [id number] 08:05:00* Test Item Value Reference Range Interpretation Comments Urine pH (test code = 37542-4) 6 5-7 [facility] Leukocyte Xwgvyovj2579-43-56 08:05:00* Test Item Value Reference Range Interpretation Comments Urine Leukocyte Esterase (test code = 19321-2) NEGATIVE NEGATIV E [facility]vineUrine Brityxz0961-54-98 08:05:00* Test Item Value Reference Range Interpretation Comments Urine Nitrite (test code = 75394-0) NEGATIVE NEGATIVE [facility] Ndzirbo0061-45-39 08:05:00* Test Item Value Reference Range Interpretation Comments Urine Protein (test code = 81922-3) NEGATIVE NEGATIVE [facility] Glucose (UA)2019-08-25 08:05:00* Test Item Value Reference Range Interpretation Comments Urine Glucose (UA) (test code = 49755-3) NEGATIVE NEGATIVE [facility]vine[facility] Tflugdi5649-45-84 08:05:00* Test Item Value Reference Range Interpretation Comments Urine Ketones (test code = 09226-2) NEGATIVE NEGATIVE [facility] Kwknksqbecqs9209-26-98 08:05:00* Test Item Value Reference Range Interpretation Comments Urine Urobilinogen (test code = 21616-3) 0.2 0.2-1 [facility]vineU[facility] Qkileidvi4568-79-64 08:05:00* Test Item Value Reference Range Interpretation Comments Urine Bilirubin (test code = 1977-8) NEGATIVE NEGATIVE [facility] Spznv2936-35-38 08:05:00* Test Item Value Reference Range Interpretation Comments Urine Blood (test code = 63438-0) NEGATIVE NEGATIVE [facility]vineU[facility] color hhhtechkavfwa1870-02-80 06:54:00* Test Item Value Reference Range Interpretation Comments Urine Color (test code = 5778-6) YELLOW YELLOW [facility]vineUrine glkiinu8763-25-73 06:54:00* Test Item Value Reference Range Interpretation Comments Urine Clarity (test code = 07196-6) CLEAR CLEAR [facility] Urine by Test strip 2019-08-25 06:54:00* Test Item Value Reference Range Interpretation Comments Urine Specific [place] (test code = 5811-5) 1.025 1.010-1.02 5 [facility]vineU[facility] pH measurement by automated test zxygg8697-27-13 06:54:00* Test Item Value Reference Range Interpretation Comments Urine pH (test code = 96865-6) 6 5-7 [facility]vineU[facility] leukocyte esterase detection by automated test pyvtz4590-58-44 06:54:00* Test Item Value Reference Range Interpretation Comments Urine Leukocyte Esterase (test code = 13181-3) NEGATIVE NEGATIV E [facility]vineUrine nitrite detection by automated test mimyx6007-32-52 06:54:00* Test Item Value Reference Range Interpretation Comments Urine Nitrite (test code = 10188-7) NEGATIVE NEGATIVE [facility]vineU[facility] protein detection by automated test sxocy9677-04-51 06:54:00* Test Item Value Reference Range Interpretation Comments Urine Protein (test code = 87300-4) NEGATIVE NEGATIVE [facility]vineU[facility] glucose detection by automated test phxzg7805-83-34 06:54:00* Test Item Value Reference Range Interpretation Comments Urine Glucose (UA) (test code = 42518-2) NEGATIVE NEGATIVE [facility]vineUrine ketones detection by automated test fvnxp4051-23-14 06:54:00* Test Item Value Reference Range Interpretation Comments Urine Ketones (test code = 41685-7) NEGATIVE NEGATIVE [facility]vineUrine urobilinogen measurement by test strip (mass/volume)2019-08-25 06:54:00* Test Item Value Reference Range Interpretation Comments Urine Urobilinogen (test code = 30807-0) 0.2 0.2-1 [facility]vineU[facility] total bilirubin tvgxrelva1816-64-46 06:54:00* Test Item Value Reference Range Interpretation Comments Urine Bilirubin (test code = 1977-8) NEGATIVE NEGATIVE [facility]vineUrine erythrocytes mbseflknb8522-93-50 06:54:00* Test Item Value Reference Range Interpretation Comments Urine Blood (test code = 73999-6) NEGATIVE NEGATIVE [facility] GrapevineAutomated urine sediment leukocyte count by microscopy (number/high power field)2019-08-25 06:54:00* Test Item Value Reference Range Interpretation Comments Urine WBC (test code = 5821-4) 6-10 0-5 [facility] GrapevineErythrocytes detection in urine sediment by light cnwaswmdot9414-05-14 06:54:00* Test Item Value Reference Range Interpretation Comments Urine RBC (test code = 26361-3) 0-5 0-5 [facility] GrapevineBacteria detection in urine sediment by light fcwoxdctex6371-66-80 06:54:00* Test Item Value Reference Range Interpretation Comments Urine Bacteria (test code = 23180-0) FEW NONE [facility] GrapevineEpithelial cells detection in urine sediment by light nlvovsifav5790-06-33 06:54:00* Test Item Value Reference Range Interpretation Comments Urine Epithelial Cells (test code = 03308-7) FEW NONE [facility] plasma total bilirubin measurement (mass/volume)2019-08-25 06:54:00* Test Item Value Reference Range Interpretation Comments Total Bilirubin (test code = 1975-2) 0.3 0.2-1.2 [facility] GrapevineFluoroscopic procedure less than one hour vqqxpvbz4301-26-66 06:54:00* Test Item Value Reference Range Interpretation Comments Aspartate Amino Transf (AST/SGOT) (test code = Aspartate Amino Transf (AST/SGOT)) 15 5-34 [facility] Hospitaler[facility] or plasma alanine aminotransferase measurement (enzymatic activity/volume)2019-08-25 06:54:00* Test Item Value Reference Range Interpretation Comments Alanine Aminotransferase (ALT/SGPT) (test code = 1742-6) 15 0-55 [facility]er[facility] plasma protein measurement (mass/volume)2019-08-25 06:54:00* Test Item Value Reference Range Interpretation Comments Total Protein (test code = 2885-2) 7.2 6.5-8.1 [facility] plasma albumin measurement (mass/volume)2019-08-25 06:54:00* Test Item Value Reference Range Interpretation Comments Albumin (test code = 1751-7) 3.8 3.5-5.0 [facility] GrapevinePlasma globulin measurement (mass/volume) 2019-08-25 06:54:00* Test Item Value Reference Range Interpretation Comments Globulin (test code = 14701-4) 3.4 2.3-3.5 [facility] plasma albumin/globulin mass [id number] 06:54:00* Test Item Value Reference Range Interpretation Comments Albumin/Globulin Ratio (test code = 1759-0) 1.1 0.8-2.0 [facility] plasma alkaline phosphatase measurement (enzymatic activity/volume)2019-08-25 06:54:00* Test Item Value Reference Range Interpretation Comments Alkaline Phosphatase (test code = 6768-6) 55 40-150 [facility]
[2020-06-04 11:51] LABS: BASOPHILS % 0.4 % (0.0-1.0); EOSINOPHILS # (AUTO) 0.1 (0.0-0.4); EOSINOPHILS % 0.7 % (0.0-6.0); HEMATOCRIT 39.1 % (34.2-44.1); HEMOGLOBIN 12.9 g/dL (12.0-16.0); LYMPHOCYTES # (AUTO) 1.5 (1.0-3.2); LYMPHOCYTES % 14.5 % (18.0-39.1); MEAN CORPUSCULAR VOLUME 87.9 fL (81-99); MONOCYTES # (AUTO) 0.6 (0.2-0.8); MONOCYTES % 5.3 % (4.4-11.3); NEUTROPHILS # (AUTO) 8.1 (2.1-6.9); NEUTROPHILS % 78.6 % (38.7-80.0); PLATELET COUNT 347 x10e3/uL (140-360); RED BLOOD COUNT 4.45 x10e6/uL (3.6-5.1)
[2020-06-04] MEDS ORDERED: SODIUM CHLORIDE 0.9% 1000ML 1,000 ML IV STA (11:57)
[2020-06-04] MEDS ORDERED: ONDANSETRON HCL INJ 2MG/ML 2ML 2 MG/ML VIAL IV STA (11:57)
[2020-06-04] MEDS ORDERED: MORPHINE SULFATE INJ 4 MG/ML INJ 1ML IV PRN (12:00)
[2020-06-04 12:18] LABS: ALANINE AMINOTRANSFERASE 19 IU/L (0-55); ALBUMIN 4.5 g/dL (3.5-5.0); ALBUMIN/GLOBULIN RATIO 1.5 (0.8-2.0); ALKALINE PHOSPHATASE 59 IU/L (40-150); ANION GAP 16.7 mmol/L (8-16); BLOOD UREA NITROGEN 5 mg/dL (7-26); BUN/CREATININE RATIO 6 (6-25); CALCIUM 8.9 mg/dL (8.4-10.2); CARBON DIOXIDE 22 mmol/L (22-29); CHLORIDE 104 mmol/L (98-107); CREATINE KINASE 69 IU/L (29-168); CREATININE, SERUM 0.77 mg/dL (0.57-1.11); EST GLOMERULAR FILTRATION RATE > 60 ML/MIN (60-); GLUCOSE 92 mg/dL (74-118); POTASSIUM 3.7 mmol/L (3.5-5.1); SODIUM 139 mmol/L (136-145)
--- NOTE | 2020-06-04 12:20 | NUR ---
MEDS GIVEN PER DR'S ORDERS AND PT HAS TOLERATED WELL. CALL [facility] AT SIDE
--- NOTE | 2020-06-04 12:45 | Emergency Department Note ---
History of Present Illnes History of Present Illness Chief Complaint: Abdominal Complaints History of Present Illness This is a 35 year old female . Chief Complaint Comment WOKE UP YESTERDAY AT 7 AM WITH LOWER QUADRANT PAIN. DESCRIBED SHARP AND ACHEY. DENIES ANY N/V/D. 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 Any updates have been documented here. Past Medical History Recent Fever: No Clinical Suspicion of Infectio: No New/Unexplained Change in Ment: No Past Medical History: CAD, Anxiety, Depression, GERD Other Medical History: diverticulitis MATTHEW - on CPAPtransgender (identifies as female) Past Surgical History: None Other Surgery: 2020- TOTAL ORCHIECTOMY Social History Smoking Cessation: Never Smoker Counseling Performed: No Alcohol Use: None Any Illegal Drug Use: No Physically hurt or threatened: No Other Last Tetanus: UTD Any Pre-Existing Lines (PICC,: No Physical Exam Related Data Allergies: Coded Allergies: No Known Allergies (Unverified , 06/04/20) Triage Vital Signs Vital Signs Date Time Temp Pulse Resp B/P (MAP) Pulse Ox O2 Delivery O2 Flow Rate FiO2 06/04/20 10:28 98.4 99 18 138/89 100 Room Air Physical Exam CONSTITUTIONAL HENT EYES NECK PULMONARY CARDIOVASCULAR GASTROINTESTINAL GENITOURINARY SKIN MUSCULOSKELETAL NEUROLOGICAL PSYCHOLOGICAL Results Laboratory Result Diagram: 06/04/20 1138 06/04/20 1138 Laboratory Laboratory Tests Test 06/04/20 11:38 White Blood Count 10.31 x10e3/uL (4.8-10.8) Red Blood Count 4.45 x10e6/uL (3.6-5.1) Hemoglobin 12.9 g/dL (12.0-16.0) Hematocrit 39.1 % (34.2-44.1) Mean Corpuscular Volume 87.9 fL (81-99) Mean Corpuscular Hemoglobin 29.0 pg (28-32) Mean Corpuscular Hemoglobin Concent 33.0 g/dL (31-35) Red Cell Distribution Width 13.0 % (11.7-14.4) Platelet Count 347 x10e3/uL (140-360) Neutrophils (%) (Auto) 78.6 % (38.7-80.0) Lymphocytes (%) (Auto) 14.5 % (18.0-39.1) Monocytes (%) (Auto) 5.3 % (4.4-11.3) Eosinophils (%) (Auto) 0.7 % (0.0-6.0) Basophils (%) (Auto) 0.4 % (0.0-1.0) Neutrophils # (Auto) 8.1 (2.1-6.9) Lymphocytes # (Auto) 1.5 (1.0-3.2) Monocytes # (Auto) 0.6 (0.2-0.8) Eosinophils # (Auto) 0.1 (0.0-0.4) Basophils # (Auto) 0.0 (0.0-0.1) Absolute Immature Granulocyte (auto 0.05 x10e3/uL (0-0.1) Sodium Level 139 mmol/L (136-145) Potassium Level 3.7 mmol/L (3.5-5.1) Chloride Level 104 mmol/L (98-107) Carbon Dioxide Level 22 mmol/L (22-29) Anion Gap 16.7 mmol/L (8-16) Blood Urea Nitrogen 5 mg/dL (7-26) Creatinine 0.77 mg/dL (0.57-1.11) Estimat Glomerular Filtration Rate > 60 ML/MIN (60-) BUN/Creatinine Ratio 6 (6-25) Glucose Level 92 mg/dL (74-118) Calcium Level 8.9 mg/dL (8.4-10.2) Total Bilirubin 0.5 mg/dL (0.2-1.2) Aspartate Amino Transf (AST/SGOT) 16 IU/L (5-34) Alanine Aminotransferase (ALT/SGPT) 19 IU/L (0-55) Alkaline Phosphatase 59 IU/L (40-150) Creatine Kinase 69 IU/L (29-168) Creatine Kinase MB 0.40 ng/mL (0-5.0) Troponin I 0.002 ng/mL (0-0.300) Total Protein 7.6 g/dL (6.5-8.1) Albumin 4.5 g/dL (3.5-5.0) Globulin 3.1 g/dL (2.3-3.5) Albumin/Globulin Ratio 1.5 (0.8-2.0) Lipase 13 U/L (8-78) Assessment & Plan Last Vital Signs Date Time Temp Pulse Resp B/P (MAP) Pulse Ox O2 Delivery O2 Flow Rate FiO2 06/04/20 11:47 84 16 125/78 99 Room Air 06/04/20 10:28 98.4 Home Meds Reported Medications Progesterone, Micronized (Crinone) 1.125 Gm Gel.pf.martina 03/06/20 Omeprazole Magnesium (PRILOSEC) 10 Mg Suspdr.pkt, 40 MG PO DAILY 08/25/19 Estradiol Hemihydrt,Micronized (ESTRADIOL) 1 Gm Powder, 20 MG IM weekly 08/25/19 Medications in the ED Sodium Chloride 1,000 ml @ 0 mls/hr Q0M STAT IV Last administered on 06/04/20at 12:20; Admin Dose 999 MLS/HR; Start 06/04/20 at 11:57; Stop 06/04/20 at 12:01; Status DC Morphine Sulfate 4 mg ONCE PRN IV SEVERE PAIN (7-10) Last administered on 06/04/20at 12:20; Admin Dose 4 MG; Start 06/04/20 at 12:00; Stop 06/11/20 at 11:59 Ondansetron HCl 4 mg NOW STAT IV Last administered on 06/04/20at 12:20; Admin Dose 4 MG; Start 06/04/20 at 11:57; Stop 06/04/20 at 12:11; Status DC GARCÍA HAMEED DO Jun 04, 2020 12:45
--- NOTE | 2020-06-04 15:08 | Diagnostic Imaging Report ---
EXAM: CT Abdomen and Pelvis WITH intravenous contrast INDICATION: Abdominal pain COMPARISON: CT abdomen and pelvis of 08/25/2019 TECHNIQUE: Abdomen and pelvis were scanned utilizing a multidetector helical scanner from the lung base to the pubic symphysis after administration of IV contrast. Coronal and sagittal reformations were obtained. Routine protocol was performed. Scan was performed during portal venous phase. IV CONTRAST: 100mL of Isovue 370 ORAL CONTRAST: Water RADIATION DOSE: Total DLP: 874 mGy*cm Dose modulation, iterative reconstruction, and/or weight based adjustment of the mA/kV was utilized to reduce the radiation dose to as low as reasonably achievable. FINDINGS: LOWER THORAX: Normal. HEPATOBILIARY: No focal hepatic lesions. No biliary ductal dilatation. The gallbladder appears unremarkable. SPLEEN: No splenomegaly. PANCREAS: No focal masses or ductal dilatation. ADRENALS: No adrenal nodules. KIDNEYS/URETERS: No hydronephrosis, stones, or solid mass lesions. PELVIC ORGANS/BLADDER: Status post hysterectomy. PERITONEUM / RETROPERITONEUM: No free air or fluid. LYMPH NODES: No lymphadenopathy. VESSELS: Unremarkable. GI TRACT: Diverticulosis without CT evidence of diverticulitis. No abnormal bowel thickening. No bowel obstruction. Normal appendix. BONES AND SOFT TISSUES: Unremarkable. IMPRESSION: Diverticulosis without CT evidence of diverticulitis. No other acute findings in the abdomen or pelvis. Signed by: Yaniv Zapien MD on 06/04/2020 3:05 PM
[2020-06-04] MEDS ORDERED: SODIUM CHLORIDE 0.9% 50ML 50 ML ONE (15:42)
[2020-06-04] MEDS ORDERED: IOPAMIDOL 370 MG/ML 200 ML INFUS..BTL INJ ONE (15:43)
[2020-06-04] MEDS ORDERED: ZOFRAN4 MG PO (15:57)
[2020-06-04] MEDS ORDERED: LEVOFLOXACIN 500MG/D5W 100ML IV SCH (16:15)
[2020-06-04] MEDS ORDERED: MORPHINE SULFATE 2 MG/ML SYR 1ML IV PRN (16:15)
[2020-06-04] MEDS ORDERED: ONDANSETRON HCL INJ 2MG/ML 2ML 2 MG/ML VIAL IV PRN (16:15)
--- NOTE | 2020-06-04 16:23 | NUR ---
PT REFUSED TO BE DC'D
[2020-06-04] MEDS ORDERED: LEVOFLOXACIN 500MG/D5W 100ML 100 ML IV SCH (17:00)
[2020-06-04] MEDS: MORPHINE SULFATE INJ 4 MG/ML INJ 1ML IV PRN (17:08)
--- OUTSIDE RECORDS SUMMARY | 2020-06-04 17:08 | XMS REPORT | Continuity of Care Document ---
Author Author [facility] t Organization [facility] Address [address] [place] [address] Phone Unavailable Care Team Providers Care Grader Green Meat Name Role Phone NONSTAFF PCP Unavailable Baldev HAMEED Attphys Unavailable Tr WILDER Attphys Unavailable Abdiaziz DO Attphys Unavailable Payers Payer Name Policy Type Policy Number Effective Date Expiration Date [employer] [id number] 2019 00:00:00 00:00:00 [facility] Problems Condition Name Condition Details Condition Category Status Onset Date Resolution Date Last Treatment Date Treating Clinician Comments Source Diverticulitis of large intestine Diverticulitis large intestine Pr oblem Active [facility] Perforation of intestine Perforated bowel Problem Active [facility] Allergies, Adverse Reactions, Alerts Allergy Name Allergy Type Status Severity Reaction(s) Onset Date Inacti ve Date Treating Clinician Comments Source No Known Allergies DA Active U 2020-05-06 00:00:00 [facility] Social History Social Habit Start Date Stop Date Quantity Comments Source Sex Assigned At 1985 00:00:00 1985 00:00:00 Female [facility] Medications Ordered Medication Name Filled Medication Name Start Date Stop Da te Current Medication? Ordering Clinician Indication Dosage Frequency Signature (SIG) Comments Components Source Estradiol Hemihydrt,Micronized (Estradiol) 1 Gm POWDER Estradiol Hemihydrt,Micronized (Estradiol) 1 Gm POWDER Yes 20 Weekly [facility] Omeprazole Magnesium (Prilosec) 10 Mg SUSPDR.PKT Omepr azole Magnesium (Prilosec) 10 Mg SUSPDR.PKT Yes 40 Daily [facility] Progesterone, Micronized (Crinone) 1.125 Gm GEL.PF.RYAN Progesterone, Micronized (Crinone) 1.125 Gm GEL.PF.RYAN Yes [facility] Ciprofloxacin Hcl (Cipro) 500 Mg TABLET Ciprofloxacin Hcl (C ipro) 500 Mg TABLET 2020-03-06 00:00:00 No 500 Every 12 Hours [facility] Metronidazole (Flagyl) 250 Mg TABLET Metronidazole (Flagyl) 250 Mg TABLET 2020-03-06 00:00:00 No 500 Every 8 Hours [facility] Vital Signs Vital Name Observation Time Observation Value Comments Source Weight 2020-03-06 18:00:00 266.06 [lb_av] [facility] BMI (Body Mass Index) 2020-03-06 18:00:00 37.1 kg/m2 [facility] Body Temperature 2019-08-29 10:17:00 99.0 [degF] [facility] Procedures Procedure Date / Time Performed Performing Clinician [facility] e Computed tomography of abdomen and pelvis with contrast 2018 00:00:00 LUBNA DO [facility] Plan of Care Planned Activity Planned Date Details Comments Source Instructions Dyspnea [facility] Encounters Start Date/Time End Date/Time Encounter Type Admission Type Attendi [facility] Care Department Encounter ID Source 2020-03-06 17:35:00 2020-03-06 21:03:00 Departed Emergency Room 1 ELIZ WILDERA [facility] [id number] [facility] 2019-08-25 09:41:00 2019-08-29 14:45:00 Discharged Inpatient 1 LUBNA DO [facility] [id number] [facility] 2019-08-06 10:57:00 2019-08-06 10:57:00 Registered Clinic [facility] [id number] [facility] Results Test Description Test Time Test Comments Results Result Comments Source CT ABDOMEN/PELVIS W 2020-06-04 15:01:00 [facility] [address] [address] Patient Name: ASYA CAMACHO MR #: [id number] : 1985 Age/Sex: 35/F Req #: [id number] Adm Physician: Ordered by: GARCÍA HAMEED DO Report #: [id number] Location: ER Room/Bed: Procedure: [id number] CT/CT ABDOMEN/PELVIS W Exam Date: 06/04/20 Exam Time: 1335 REPORT STATUS: Signed EXAM: CT Abdomen and Pelvis WITH intravenous contrast INDICATION: Abdominal pain COMPARISON: CT abdomen and pelvis of 08/25/2019 TECHNIQUE: Abdomen and pelvis were scanned utilizing a multidetector helical scanner from the lung base to the pubic symphysis after administration of IV contrast. Coronal and sagittal reformations were obtained. Routine protocol was performed. Scan was performed during portal venous phase. IV CONTRAST: 100mL of Isovue 370 ORAL CONTRAST: Water RADIATION DOSE: Total DLP: 874 mGy*cm Dose modulation, iterative reconstruction, and/or weight based adjustment of the mA/kV was utilized to reduce the radiation dose to as low as reasonably achievable. FINDINGS: LOWER THORAX: Normal. HEPATOBILIARY: No focal hepatic lesions. No biliary ductal dilatation. The gallbladder appears unremarkable. SPLEEN: No splenomegaly. PANCREAS: No focal masses or ductal dilatation. ADRENALS: No adrenal nodules. KIDNEYS/URETERS: No hydronephrosis, stones, or solid mass lesions. PELVIC ORGANS/BLADDER: Status post hysterectomy. PERITONEUM / RETROPERITONEUM: No free air or fluid. LYMPH NODES: No lymphadenopathy. VESSELS: Unremarkable. GI TRACT: Diverticulosis without CT evidence of diverticulitis. No abnormal bowel thickening. No bowel obstruction. Normal appendix. BONES AND SOFT TISSUES: Unremarkable. IMPRESSION: Diverticulosis without CT evidence of diverticulitis. No other acute findings in the abdomen or pelvis. Signed by: Demetruis Green MD on 06/04/2020 3:05 PM Dictated By: DEMETRIUS GREEN MD 04 Transcribed By: PITER on 06/04/201504 COPY TO: GARCÍA HAMEED DO SURGICAL SPECIMENS 2020-05-13 09:39:00 RUN DATE: 05/13/20 [facility] - LAB PAGE 1 RUN TIME: 938 Specimen Inquiry RUN USER: INTERFACE PATIENT: ASYA CAMACHO LOC: [facility]ry[facility] U #: [id number] AGE/SX: 35/F ROOM: RE05/11/20REG DR: Dustin Alas MD : [birth year] BED: DIS: STATUS: [facility] TLOC: SPEC #: [id number] RECD: 05/11/20 STATUS: JENNIFER RODRIGUEZ #: [id number] TREMAINE: 05/11/[address]: Dustin Alas MD ENTERED: 05/11/20 SP [...] - NO DIAGNOSTIC ABNORMALITY IS IDENTIFIED. CPT: 25922S4 GROSS DESCRIPTION Received in formalin labeled with [...] parenchyma is spongy brown-gold without any masses. Envelope Patternmaker sections of each testis and epididymis are submitted. SECTION CODE: A1, first testis; A2, second testis. /charlene Signed SIGNATURE ON FILE Summer Mccarthy MD 05/13/20 0939 END OF REPORT Novel Coronavirus 20182020-05-07 08:56:00 Test Item Novel Coronavirus 2018 nCoV (test code = COVID19) Not Detected Not Detected Testing was performed using the Aptima SARS-CoV-2 assay.This test was developed and its performance characteristicsdetermined by [employer]. This test has not beenFDA cleared or approved. This test has been authorized byA under an Emergency Use Authorization (EUA). This [...] detected) result in this assay.Perf ormed At: [facility] [place], [place] [id number] Rodney Machado MD Ph:[phone] Novel Coronavirus 06:11:00* Test Item Value Reference Range Interpretation Comments Novel Coronavirus 2019 nCoV (test code = COVID19) Not Detected Not Detected Testing was performed using the Aptima SARS-CoV-2 assay.This test was developed and its performance characteristicsdetermined by [employer]. This test has not beenFDA cleared or approved. This test has been authorized byA under an Emergency Use Authorization (EUA). This [...] result in this assay.Perf ormed At: [facility] [address] [id number] Rodney Machado MD Ph:[phone] BASIC METABOLIC [id number] 13:24:00* Test Item Value Reference Range Interpretation [...] CA) 9.1 mg/dL 8.8-10.2 N CBC W/AUTO WKVG0925-44-61 12:55:00* Test Item Value Reference Range Interpretation [...] 0.05 x10 3/uL 0.0-0.20 N CXR 2 VIEW - OVBC7210-75-53 20:22:00 [facility] [address] [address] Patient Name: ASYA CAMACHO MR #: [id number] : 1985 Age/Sex: 35/F Req #: [id number] Adm Physician: Ordered by: NILESH WILDER MD Report #: [id number] Location: [facility] Room/Bed: Procedure: HOPD/CXR 2 VIEW - HOPD Exam Date: [...] 03/06/20 COPY TO: NILESH WILDER MD Sodium Iclzr9422-13-28 06:45:00* Test Item Value Reference Range Interpretation Comments Sodium Level (test code = 2951-2) 139 136-145 [facility]Potassium Jqzaw0994-74-65 06:45:00* Test Item Value Reference Range Interpretation Comments Potassium Level (test code = 2823-3) 3.6 3.5-5.1 [facility] HospitalChloride Emjdu3831-49-61 06:45:00* Test Item Value Reference Range Interpretation Comments Chloride Level (test code = 2075-0) 103 98-107 [facility] HospitalCarbon Dioxide Omejy3627-30-60 06:45:00* Test Item Value Reference Range Interpretation Comments Carbon Dioxide Level (test code = 2028-9) 26 22-29 [facility] HospitalAnion Hjm1649-91-19 06:45:00* Test Item Value Reference Range Interpretation Comments Anion Gap (test code = 29721-9) 13.6 8-16 [facility] HospitalBlood Urea Atxvsoto7326-98-59 06:45:00* Test Item Value Reference Range Interpretation Comments Blood Urea Nitrogen (test code = 3094-0) 5 7-26 L [facility] HospitalCreatinine2019-12-05 06:45:00* Test Item Value Reference Range Interpretation Comments Creatinine (test code = 2160-0) 0.82 0.72-1.25 [facility] HospitalBUN/Creatinine Sgyfw5874-27-98 06:45:00* Test Item Value Reference Range Interpretation Comments BUN/Creatinine Ratio (test code = 3097-3) 6 6-25 [facility] HospitalEstimat Glomerular Filtration Rate 2019-08-29 06:45:00* Test Item Value Reference Range Interpretation Comments Estimat Glomerular Filtration Rate (test code = 912331861) > 60 >60 Ranges were taken from the National Kidney Disease Education Program and the [facility] Kid[facility] Foundation literature.Reference ranges:60 or greater: Ciirwc49-38 ( for 3 consecutive months): Chronic kidney disease 15 or less: Kidney failureJohn Peter Smith HospitalGlucose Puwrr5748-95-81 06:45:00* Test Item Value Reference Range Interpretation Comments Glucose Level (test code = GIK6561) 91 74-118 [facility] HospitalCalcium Jziar0485-76-59 06:45:00* Test Item Value Reference Range Interpretation Comments Calcium Level (test code = 92154-9) 9.0 8.4-10.2 [facility] HospitalWhite Blood Iucfx6308-81-84 06:24:00* Test Item Value Reference Range Interpretation Comments White Blood Count (test code = 6690-2) 7.92 4.8-10.8 [facility] HospitalRed Blood Kqvwr2551-01-95 06:24:00* Test Item Value Reference Range Interpretation Comments Red Blood Count (test code = 789-8) 4.01 4.3-5.7 L [facility] HospitalHemoglobin2019-12-05 06:24:00* Test Item Value Reference Range Interpretation Comments Hemoglobin (test code = 60012-8) 11.8 14.0-18.0 L [facility] HospitalHematocrit2019-12-05 06:24:00* Test Item Value Reference Range Interpretation Comments Hematocrit (test code = 4544-3) 35.8 38.2-49.6 L [facility] HospitalMean Corpuscular Siwxzn4096-92-50 06:24:00* Test Item Value Reference Range Interpretation Comments Mean Corpuscular Volume (test code = 787-2) 89.3 81-99 [facility] HospitalMean Corpuscular Sxijwcbcwe1646-78-27 06:24:00* Test Item Value Reference Range Interpretation Comments Mean Corpuscular Hemoglobin (test code = 785-6) 29.4 28-32 [facility] Hem[facility] Concent 2019-08-29 06:24:00* Test Item Value Reference Range Interpretation Comments Mean Corpuscular Hemoglobin Concent (test code = 786-4) 33.0 31-35 [facility] HospitalRed Cell Distribution Fdvsr2241-78-10 06:24:00* Test Item Value Reference Range Interpretation Comments Red Cell Distribution Width (test code = 30182-4) 12.8 11.7 -14.4 [facility] HospitalPlatelet Sdqqg4625-96-27 06:24:00* Test Item Value Reference Range Interpretation Comments Platelet Count (test code = 777-3) 362 140-360 H [facility] HospitalNeutrophils (%) (Auto)2019-08-29 06:24:00 * Test Item Value Reference Range Interpretation Comments Neutrophils (%) (Auto) (test code = 63208-6) 63.9 38.7-80.0 [facility] HospitalLymphocytes (%) (Auto)2019-08-29 06:24:00 * Test Item Value Reference Range Interpretation Comments Lymphocytes (%) (Auto) (test code = 736-9) 23.6 18.0-39.1 [facility] HospitalMonocytes (%) (Auto)2019-08-29 06:24:00* Test Item Value Reference Range Interpretation Comments Monocytes (%) (Auto) (test code = 5905-5) 8.3 4.4-11.3 [facility] HospitalEosinophils (%) (Auto)2019-08-29 06:24:00 * Test Item Value Reference Range Interpretation Comments Eosinophils (%) (Auto) (test code = 713-8) 2.8 0.0-6.0 [facility] HospitalBasophils (%) (Auto)2019-08-29 06:24:00* Test Item Value Reference Range Interpretation Comments Basophils (%) (Auto) (test code = 706-2) 0.8 0.0-1.0 [facility] HospitalIM GRANULOCYTES %2019-08-29 06:24:00* Test Item Value Reference Range Interpretation Comments IM GRANULOCYTES % (test code = IM GRANULOCYTES %) 0.6 0.0- 1.0 [facility] HospitalNeutrophils # (Auto)2019-08-29 06:24:00* Test Item Value Reference Range Interpretation Comments Neutrophils # (Auto) (test code = 751-8) 5.1 2.1-6.9 [facility] HospitalLymphocytes # (Auto)2019-08-29 06:24:00* Test Item Value Reference Range Interpretation Comments Lymphocytes # (Auto) (test code = 08214-1) 1.9 1.0-3.2 [facility] HospitalMonocytes # (Auto)2019-08-29 06:24:00* Test Item Value Reference Range Interpretation Comments Monocytes # (Auto) (test code = 742-7) 0.7 0.2-0.8 [facility] HospitalEosinophils # (Auto)2019-08-29 06:24:00* Test Item Value Reference Range Interpretation Comments Eosinophils # (Auto) (test code = 711-2) 0.2 0.0-0.4 [facility] HospitalBasophils # (Auto)2019-08-29 06:24:00* Test Item Value Reference Range Interpretation Comments Basophils # (Auto) (test code = 704-7) 0.1 0.0-0.1 [facility] HospitalAbsolute Immature Granulocyte (auto 2019-08-29 06:24:00* Test Item Value Reference Range Interpretation Comments Absolute Immature Granulocyte (auto (edy t code = Absolute Immature Granulocyte (auto) 0.05 0-0.1 [facility] HospitalBlood leukocytes automated count (number/volume)2019-08-29 05:00:00* Test Item Value Reference Range Interpretation Comments White Blood Count (test code = 6690-2) 7.92 4.8-10.8 [facility] HospitalBlst[facility] erythrocytes automated count (number/volume)2019-08-29 05:00:00* Test Item Value Reference Range Interpretation Comments Red Blood Count (test code = 789-8) 4.01 4.3-5.7 [facility] HospitalBlood hemoglobin measurement (moles/volume)2019-08-29 05:00:00* Test Item Value Reference Range Interpretation Comments Hemoglobin (test code = 45656-4) 11.8 14.0-18.0 [facility] HospitalAutomated blood hematocrit (volume fraction)2019-08-29 05:00:00* Test Item Value Reference Range Interpretation Comments Hematocrit (test code = 4544-3) 35.8 38.2-49.6 [facility] HospitalAutomated erythrocyte mean corpuscular eqliga5617-69-74 05:00:00* Test Item Value Reference Range Interpretation Comments Mean Corpuscular Volume (test code = 787-2) 89.3 81-99 [facility] HospitalAutomated erythrocyte mean corpuscular hemoglobin (mass per erythrocyte)2019-08-29 05:00:00* Test Item Value Reference Range Interpretation Comments Mean Corpuscular Hemoglobin (test code = 785-6) 29.4 28-32 [facility] HospitalAutomated erythrocyte mean corpuscular hemoglobin concentration measurement (mass/volume)2019-08-29 05:00:00* Test Item Value Reference Range Interpretation Comments Mean Corpuscular Hemoglobin Concent (test code = 786-4) 33.0 31-35 [facility] HospitalRDW LoyAe-Rwv1420-66-05 05:00:00* Test Item Value Reference Range Interpretation Comments Red Cell Distribution Width (test code = 68993-5) 12.8 11.7 -14.4 [facility] HospitalAutomated blood platelet count (count/volume)2019-08-29 05:00:00* Test Item Value Reference Range Interpretation Comments Platelet Count (test code = 777-3) 362 140-360 [facility] HospitalAutomated blood segmented neutrophil count as percentage of total praxxzshnu4804-67-97 05:00:00* Test Item Value Reference Range Interpretation Comments Neutrophils (%) (Auto) (test code = 08352-8) 63.9 38.7-80.0 [facility] HospitalAutomated blood lymphocyte count as percentage ot total bseakcyajq9228-38-77 05:00:00* Test Item Value Reference Range Interpretation Comments Lymphocytes (%) (Auto) (test code = 736-9) 23.6 18.0-39.1 [facility] HospitalAutomated blood monocyte count as percentage of total lyxulenzyk3019-69-22 05:00:00* Test Item Value Reference Range Interpretation Comments Monocytes (%) (Auto) (test code = 5905-5) 8.3 4.4-11.3 [facility] HospitalAutomated blood eosinophil count as percentage of total tmaqhccozn6816-84-05 05:00:00* Test Item Value Reference Range Interpretation Comments Eosinophils (%) (Auto) (test code = 713-8) 2.8 0.0-6.0 [facility] HospitalAutomated blood basophil count as percentage of total snwadsxkah4686-29-07 05:00:00* Test Item Value Reference Range Interpretation Comments Basophils (%) (Auto) (test code = 706-2) 0.8 0.0-1.0 [facility] HospitalFluoroscopic procedure less than one hour nnqswsrb1435-02-08 05:00:00* Test Item Value Reference Range Interpretation Comments IM GRANULOCYTES % (test code = IM GRANULOCYTES %) 0.6 0.0- 1.0 [facility] HospitalAutomated blood neutrophil count 2019-08-29 05:00:00* Test Item Value Reference Range Interpretation Comments Neutrophils # (Auto) (test code = 751-8) 5.1 2.1-6.9 [facility] HospitalBlood lymphocytes count (number/volume) 2019-08-29 05:00:00* Test Item Value Reference Range Interpretation Comments Lymphocytes # (Auto) (test code = 45958-5) 1.9 1.0-3.2 [facility] HospitalBlood monocytes automated count (number/volume)2019-08-29 05:00:00* Test Item Value Reference Range Interpretation Comments Monocytes # (Auto) (test code = 742-7) 0.7 0.2-0.8 [facility] HospitalAutomated blood eosinophil count 2019-08-29 05:00:00* Test Item Value Reference Range Interpretation Comments Eosinophils # (Auto) (test code = 711-2) 0.2 0.0-0.4 [facility] HospitalAutomated blood basophil count (count/volume)2019-08-29 05:00:00* Test Item Value Reference Range Interpretation Comments Basophils # (Auto) (test code = 704-7) 0.1 0.0-0.1 [facility] HospitalFluoroscopic procedure less than one hour qywyhcja3059-59-40 05:00:00* Test Item Value Reference Range Interpretation Comments Absolute Immature Granulocyte (auto (edy t code = Absolute Immature Granulocyte (auto) 0.05 0-0.1 [facility]rum or plasma sodium measurement (moles/volume)2019-08-29 05:00:00* Test Item Value Reference Range Interpretation Comments Sodium Level (test code = 2951-2) 139 136-145 [facility] Centererum or plasma potassium measurement (moles/volume)2019-08-29 05:00:00* Test Item Value Reference Range Interpretation Comments Potassium Level (test code = 2823-3) 3.6 3.5-5.1 [facility] Centererum or plasma chloride measurement (moles/volume)2019-08-29 05:00:00* Test Item Value Reference Range Interpretation Comments Chloride Level (test code = 2075-0) 103 98-107 [facility] Centererum or plasma carbon dioxide, total measurement (moles/volume)2019-08-29 05:00:00* Test Item Value Reference Range Interpretation Comments Carbon Dioxide Level (test code = 2028-9) 26 22-29 [facility] Centererum or plasma anion viy1182-37-24 05:00:00* Test Item Value Reference Range Interpretation Comments Anion Gap (test code = 31436-9) 13.6 8-16 [facility]ererum or plasma urea nitrogen measurement (mass/volume)2019-08-29 05:00:00* Test Item Value Reference Range Interpretation Comments Blood Urea Nitrogen (test code = 3094-0) 5 7-26 [facility] Centererum or plasma creatinine measurement (mass/volume)2019-08-29 05:00:00* Test Item Value Reference Range Interpretation Comments Creatinine (test code = 2160-0) 0.82 0.72-1.25 [facility] Centererum or plasma urea nitrogen/creatinine mass cffak3234-09-43 05:00:00* Test Item Value Reference Range Interpretation Comments BUN/Creatinine Ratio (test code = 3097-3) 6 6-25 [facility] HospitalEstimated glomerular filtration rate (GFR) dtrsgqjezxwus0214-75-68 05:00:00* Test Item Value Reference Range Interpretation Comments Estimat Glomerular Filtration Rate (test code = 998039090) > 60 >60 Ranges were taken from the National Kidney Disease Education Program and the [facility] Kidney Foundation literature.Reference ranges:60 or greater: Jqnwrp64-54 ( for 3 consecutive months): Chronic kidney disease 15 or less: Kidney failureJohn Peter Smith HospitalGlucose csglwkqkxzn1251-12-97 05:00:00* Test Item Value Reference Range Interpretation Comments Glucose Level (test code = EOY1580) 91 74-118 [facility] Centererum or plasma calcium measurement (mass/volume)2019-08-29 05:00:00* Test Item Value Reference Range Interpretation Comments Calcium Level (test code = 05569-3) 9.0 8.4-10.2 [facility] HospitalCT ABDOMEN/PELVIS U6709-40-63 10:14:00 [facility] [address] [address] Patient Name: ASYA CAMACHO MR #: [id number] : 1985 Age/Sex: 34/M Req #: [id number] Adm Physician: Ordered by: LUBNA DO MD Report #: [id number] Location: ER Room/Bed: Procedure: 1201-[address]/CT ABDOMEN/PELVIS W Exam Date: 08/25/19 Exam Time: 905 REPORT STATUS: Signed CT Abdomen And Pelvis with Intravenous Contrast INDICATION: look for appy, diverticulitis, pancreatitis, hernia, rup [id number] Y T ECHNIQUE: Thin collimation axial [...] ymphadenopathy. Aorta: Normal in diameter PELVIS FINDINGS: [place] el: Stomach: Normal. Small Bowel: Normal in [...] 1018 COPY TO: LUBNA DO MD Total Huaqjlipf9677-45-98 08:28:00* Test Item Value Reference Range Interpretation Comments Total Bilirubin (test code = 1975-2) 0.3 0.2-1.2 [facility] HospitalAspartate Amino Transf (AST/SGOT) 2019-08-25 08:28:00* Test Item Value Reference Range Interpretation Comments Aspartate Amino Transf (AST/SGOT) (test code = Aspartate Amino Transf (AST/SGOT)) 15 5-34 [facility] HospitalAlanine Aminotransferase (ALT/SGPT) 2019-08-25 08:28:00* Test Item Value Reference Range Interpretation Comments Alanine Aminotransferase (ALT/SGPT) (test code = 1742-6) 15 0-55 [facility] HospitalTotal Uspomhu2225-90-19 08:28:00* Test Item Value Reference Range Interpretation Comments Total Protein (test code = 2885-2) 7.2 6.5-8.1 [facility] HospitalAlbumin2019-12-01 08:28:00* Test Item Value Reference Range Interpretation Comments Albumin (test code = 1751-7) 3.8 3.5-5.0 [facility] HospitalGlobulin2019-12-01 08:28:00* Test Item Value Reference Range Interpretation Comments Globulin (test code = 92982-7) 3.4 2.3-3.5 [facility] HospitalAlbumin/Globulin Nobbh6627-78-11 08:28:00 * Test Item Value Reference Range Interpretation Comments Albumin/Globulin Ratio (test code = 1759-0) 1.1 0.8-2.0 [facility] HospitalAlkaline Fvezoumpwry6621-92-00 08:28:00* Test Item Value Reference Range Interpretation Comments Alkaline Phosphatase (test code = 6768-6) 55 40-150 [facility] HospitalUrine IGF5502-75-86 08:25:00* Test Item Value Reference Range Interpretation Comments Urine WBC (test code = 5821-4) 6-10 0-5 H [facility] HospitalUrine JVU9411-64-32 08:25:00* Test Item Value Reference Range Interpretation Comments Urine RBC (test code = 78033-3) 0-5 0-5 [facility] HospitalUrine Ugqdqqjr8925-42-56 08:25:00* Test Item Value Reference Range Interpretation Comments Urine Bacteria (test code = 61498-4) FEW NONE [facility] HospitalUrine Epithelial Ovwic9726-91-48 08:25:00 * Test Item Value Reference Range Interpretation Comments Urine Epithelial Cells (test code = 81896-8) FEW NONE [facility] HospitalUrine Mpkta4032-32-37 08:05:00* Test Item Value Reference Range Interpretation Comments Urine Color (test code = 5778-6) YELLOW YELLOW [facility] HospitalUrine Bwvswsp2886-64-17 08:05:00* Test Item Value Reference Range Interpretation Comments Urine Clarity (test code = 74059-1) CLEAR CLEAR [facility] Specific [id number] 08:05:00 * Test Item Value Reference Range Interpretation Comments Urine Specific [place] (test code = 5811-5) 1.025 1.010-1.02 5 [id number] 08:05:00* Test Item Value Reference Range Interpretation Comments Urine pH (test code = 42469-1) 6 5-7 [facility] Leukocyte [id number] 08:05:00* Test Item Value Reference Range Interpretation Comments Urine Leukocyte Esterase (test code = 38706-8) NEGATIVE NEGATIV E [facility] [id number] 08:05:00* Test Item Value Reference Range Interpretation Comments Urine Nitrite (test code = 88826-5) NEGATIVE NEGATIVE [facility] [id number] 08:05:00* Test Item Value Reference Range Interpretation Comments Urine Protein (test code = 60525-1) NEGATIVE NEGATIVE [facility] Glucose (UA)2019-08-25 08:05:00* Test Item Value Reference Range Interpretation Comments Urine Glucose (UA) (test code = 05643-8) NEGATIVE NEGATIVE [facility] [id number] 08:05:00* Test Item Value Reference Range Interpretation Comments Urine Ketones (test code = 36385-5) NEGATIVE NEGATIVE [facility] Schxnjyenmrb3103-65-16 08:05:00* Test Item Value Reference Range Interpretation Comments Urine Urobilinogen (test code = 79749-2) 0.2 0.2-1 [facility] Mrntrzrrx7822-89-74 08:05:00* Test Item Value Reference Range Interpretation Comments Urine Bilirubin (test code = 1977-8) NEGATIVE NEGATIVE [facility] [id number] 08:05:00* Test Item Value Reference Range Interpretation Comments Urine Blood (test code = 02584-3) NEGATIVE NEGATIVE [facility] color [id number] 06:54:00* Test Item Value Reference Range Interpretation Comments Urine Color (test code = 5778-6) YELLOW YELLOW [facility] axvwbgw9727-02-79 06:54:00* Test Item Value Reference Range Interpretation Comments Urine Clarity (test code = 55226-3) [facility]AR [facility]AR [facility] Test [facility] 2019-08-25 06:54:00* Test Item Value Reference Range Interpretation Comments Urine Specific [place] (test code = 5811-5) 1.025 1.010-1.02 5 [facility] measurement by automated test [id number] 06:54:00* Test Item Value Reference Range Interpretation Comments Urine pH (test code = 28723-2) 6 5-7 [facility] leukocyte esterase detection by automated test [id number] 06:54:00* Test Item Value Reference Range Interpretation Comments Urine Leukocyte Esterase (test code = 06047-1) NEGATIVE NEGATIV E [facility] nitrite detection by automated test [id number] 06:54:00* Test Item Value Reference Range Interpretation Comments Urine Nitrite (test code = 57113-5) NEGATIVE NEGATIVE [facility] protein detection by automated test [id number] 06:54:00* Test Item Value Reference Range Interpretation Comments Urine Protein (test code = 39602-8) NEGATIVE NEGATIVE [facility] glucose detection by automated test gutdl9490-02-02 06:54:00* Test Item Value Reference Range Interpretation Comments Urine Glucose (UA) (test code = 79418-7) NEGATIVE NEGATIVE [facility] ketones detection by automated test [id number] 06:54:00* Test Item Value Reference Range Interpretation Comments Urine Ketones (test code = 12445-3) NEGATIVE NEGATIVE [facility] urobilinogen measurement by test strip (mass/volume)2019-08-25 06:54:00* Test Item Value Reference Range Interpretation Comments Urine Urobilinogen (test code = 64397-4) 0.2 0.2-1 [facility] total bilirubin idtcamaai6454-88-06 06:54:00* Test Item Value Reference Range Interpretation Comments Urine Bilirubin (test code = 1977-8) NEGATIVE NEGATIVE [facility] erythrocytes [id number] 06:54:00* Test Item Value Reference Range Interpretation Comments Urine Blood (test code = 11825-7) NEGATIVE NEGATIVE [facility]Autom[facility] urine sediment leukocyte count by microscopy (number/high power field)2019-08-25 06:54:00* Test Item Value Reference Range Interpretation Comments Urine WBC (test code = 5821-4) 6-10 0-5 [facility]rythrocytes detection in urine sediment by light [id number] 06:54:00* Test Item Value Reference Range Interpretation Comments Urine RBC (test code = 57978-2) 0-5 0-5 [facility] detection in urine sediment by light [id number] 06:54:00* Test Item Value Reference Range Interpretation Comments Urine Bacteria (test code = 52933-6) FEW NONE [facility] HospitalEpithelial cells detection in urine sediment by light [id number] 06:54:00* Test Item Value Reference Range Interpretation Comments Urine Epithelial Cells (test code = 33666-2) FEW NONE [facility] total bilirubin measurement (mass/volume)2019-08-25 06:54:00* Test Item Value Reference Range Interpretation Comments Total Bilirubin (test code = 1975-2) 0.3 0.2-1.2 [facility] HospitalFluoroscopic procedure less than one hour [id number] 06:54:00* Test Item Value Reference Range Interpretation Comments Aspartate Amino Transf (AST/SGOT) (test code = Aspartate Amino Transf (AST/SGOT)) 15 5-34 [facility] alanine aminotransferase measurement (enzymatic activity/volume)2019-08-25 06:54:00* Test Item Value Reference Range Interpretation Comments Alanine Aminotransferase (ALT/SGPT) (test code = 1742-6) 15 0-55 [facility] plasma protein measurement (mass/volume)2019-08-25 06:54:00* Test Item Value Reference Range Interpretation Comments Total Protein (test code = 2885-2) 7.2 6.5-8.1 [facility] plasma albumin measurement (mass/volume)2019-08-25 06:54:00* Test Item Value Reference Range Interpretation Comments Albumin (test code = 1751-7) 3.8 3.5-5.0 [facility] globulin measurement (mass/volume) 2019-08-25 06:54:00* Test Item Value Reference Range Interpretation Comments Globulin (test code = 00168-9) 3.4 2.3-3.5 [facility] albumin/globulin mass [id number] 06:54:00* Test Item Value Reference Range Interpretation Comments Albumin/Globulin Ratio (test code = 1759-0) 1.1 0.8-2.0 [facility] or plasma alkaline phosphatase measurement (enzymatic activity/volume)2019-08-25 06:54:00* Test Item Value Reference Range Interpretation Comments Alkaline Phosphatase (test code = 6768-6) 55 40-150 [facility]
[2020-06-04] MEDS: METRONIDAZOLE 500MG/NS 100ML 100 ML IV SCH (17:10)
[2020-06-04] MEDS ORDERED: ACETAMINOPHEN 325 MG TAB PO ONE (18:15)
--- NOTE | 2020-06-04 20:00 | NUR ---
Patient prefers to be called Ms Garcia. patient is alert and oriented x 4. patient is on room air. patient came to hospital with some medications. patient states she takes a shot of her medication every week, she states she has the medication and wants to give the shot to herself, patient was made aware that as per hospital policy, the admitting md needs to be notified for approval, she verbalized understanding, Dr. Murillo was paged twice no call back, stock broker supervisor was made aware, as per patient, she can wait till her for md to see her and approve the medications. Patient also complained of itch in her perineal area, and she wants rn to assess, I informed house wirer and she went to assess the site with her. no complains at this time. Safety and fall precautions maintained as per hospital protocol.
[2020-06-04 21:39] VITALS: BP 150/85
[2020-06-04 22:05] VITALS: BP 122/72
[2020-06-04] MEDS ORDERED: SODIUM CHLORIDE 0.9% 250ML 250 ML ONE (22:36)
[2020-06-05] MEDS: MORPHINE SULFATE INJ 4 MG/ML INJ 1ML IV PRN
[2020-06-05 00:10] VITALS: BP 123/85
[2020-06-05] MEDS: METRONIDAZOLE 500MG/NS 100ML 100 ML IV SCH ×3 (00:31→12:00)
[2020-06-05 04:00] VITALS: BP 126/84
--- NOTE | 2020-06-05 07:35 | NUR ---
Patient endorsed to next shift for continuity of care.
--- NOTE | 2020-06-05 07:36 | NUR ---
CHANGE OF SHIFT REPORT RECEIVED FROM PM NURSE. PT IN STABLE CONDITION.
[2020-06-05 07:59] VITALS: BP 126/84
[2020-06-05 08:00] VITALS: BP 125/80
[2020-06-05 12:00] VITALS: BP 123/79
== END 2020-06-05 15:45 | disposition home or self-care (01) ==
LOC: ER 10:28 → ERHOLD 16:13 → MED/SURG3 21:34
DX: R10.9 Unspecified abdominal pain (principal); I25.10 Atherosclerotic heart disease of native coronary artery without angina pectoris; F41.9 Anxiety disorder, unspecified; F32.9 Major depressive disorder, single episode, unspecified; K21.9 Gastro-esophageal reflux disease without esophagitis; G47.33 Obstructive sleep apnea (adult) (pediatric); F64.0 Transsexualism
CPT/HCPCS: 36415; 74177; 80053; 82550; 82553; 83690; 84484; 84702; 85025; 99284; G0378 ×2; J1956; J2270; J2405 ×2; J7030; J7050; Q9967; U0002